=== PATIENT | female | born 1960 | race Caucasian/White ===

== ENCOUNTER 2020-02-11 09:06 | Outpatient (REF) | payer OTHER, SELFPAY ==
[2020-02-11 10:59] LABS: Alanine Aminotransferase 24 U/L (0-31); Albumin Level 4.3 g/dL (3.5-5.0); Alkaline Phosphatase 114 U/L (39-117); Anion Gap 12 (12-20); Aspartate Amino Transferase 24 U/L (5-31); Bilirubin Total 0.9 mg/dL (0.0-1.0); Blood Urea Nitrogen 13 mg/dL (9-16); Calcium 9.1 mg/dL (8.4-10.2); Carbon Dioxide 27 mmol/L (22-29); Chloride 106 mmol/L (96-108); Cholesterol 169 mg/dL; Estimated Glomerular Filt Rate > 60; Glucose Fasting 87 mg/dL (60-99); HDL Cholesterol 51 mg/dL; LDL Cholesterol Calculated 106 mg/dl; Potassium 4.3 mmol/l (3.3-5.1); Sodium 141 mmol/L (135-145); Total Protein 7.5 g/dL (6.5-8.0); Triglycerides 61 mg/dL
== END 2020-02-11 09:07 | disposition home or self-care (01) ==
LOC: HO.LAB 09:06
PROVIDERS: PCP Internal Medicine; Visit Provider Internal Medicine
DX: E78.00 Pure hypercholesterolemia, unspecified (principal); E03.9 Hypothyroidism, unspecified
CPT/HCPCS: 80053; 80061; 84443

== ENCOUNTER 2020-02-28 08:38 | Outpatient (REF) | payer OTHER, SELFPAY | END 2020-02-28 08:39 | disposition home or self-care (01) | LOC: HO.LAB 08:38 | PROVIDERS: Visit Provider Internal Medicine | DX: Z20.828 Contact with and (suspected) exposure to other viral communicable diseases (principal) | CPT/HCPCS: C9803; U0003 ==

== ENCOUNTER 2020-06-11 08:24 | Outpatient (REF) | payer OTHER, SELFPAY ==
[2020-06-11 09:48] LABS: Alanine Aminotransferase 20 U/L (0-31); Albumin Level 4.1 g/dL (3.5-5.0); Alkaline Phosphatase 101 U/L (39-117); Anion Gap 9 (12-20); Aspartate Amino Transferase 20 U/L (5-31); Bilirubin Total 0.5 mg/dL (0.0-1.0); Blood Urea Nitrogen 20 mg/dL (9-16); Calcium 9.1 mg/dL (8.4-10.2); Carbon Dioxide 29 mmol/L (22-29); Chloride 104 mmol/L (96-108); Cholesterol 229 mg/dL; Estimated Glomerular Filt Rate > 60; Glucose Fasting 102 mg/dL (60-99); HDL Cholesterol 44 mg/dL; LDL Cholesterol Calculated 167 mg/dl; Potassium 4.9 mmol/L (3.3-5.1); Sodium 137 mmol/L (135-145); Total Protein 7.2 g/dL (6.5-8.0); Triglycerides 94 mg/dL
[2020-06-11 10:12] LABS: TSH reflex Free T4 2.85 uIU/mL (0.32-4.0)
== END 2020-06-11 08:25 | disposition home or self-care (01) ==
LOC: HO.LAB 08:24
PROVIDERS: PCP Internal Medicine; Visit Provider Internal Medicine
DX: E78.00 Pure hypercholesterolemia, unspecified (principal); E03.9 Hypothyroidism, unspecified
CPT/HCPCS: 36415; 80053; 80061; 84443

== ENCOUNTER 2020-08-10 08:04 | Outpatient (REF) | payer OTHER, SELFPAY ==
--- NOTE | ~2020-08-10 | MM_ITS ---
EXAMINATION: MM SCREENING DIGITAL BREAST TOMOSYNTHESIS, BILATERAL CLINICAL INFORMATION: Screening. Asymptomatic. The lifetime risk of breast cancer based on the Tyrer-Cuzick Model is 9%. COMPARISON: Mammography: 06/06/2019, 06/01/2018, 03/28/2017 TECHNIQUE: Digital breast tomosynthesis is performed in both the craniocaudal and mediolateral oblique views along with computer-aided detection (CAD). Synthesized 2D images are generated from the tomosynthesis. FINDINGS: There are scattered areas of fibroglandular density (ACR BI-RADS breast composition Category b). There are no significant masses, abnormal calcifications, or other abnormalities. There is intramammary node again noted posterior 3:30 o'clock left breast. The skin contours are smooth. No significant changes. MM/MM tomosynthesis screening BI IMPRESSION: No mammographic evidence of malignancy. ASSESSMENT: BI-RADS 2: Benign RECOMMENDATION: Routine annual mammography screening. This patient's information was entered into a reminder system with a target due date for their next mammogram.
== END 2020-08-10 08:05 | disposition home or self-care (01) ==
LOC: HO.MAMMO 08:04
PROVIDERS: PCP Internal Medicine; Visit Provider Internal Medicine
DX: Z12.31 Encounter for screening mammogram for malignant neoplasm of breast (principal)
CPT/HCPCS: 77063; 77067

== ENCOUNTER 2020-10-12 11:45 | Outpatient (REF) | payer OTHER, SELFPAY ==
[2020-10-12 12:40] LABS: Alanine Aminotransferase 27 U/L (0-31); Albumin Level 4.3 g/dL (3.5-5.0); Alkaline Phosphatase 112 U/L (39-117); Anion Gap 11 (12-20); Aspartate Amino Transferase 27 U/L (5-31); Bilirubin Total 0.6 mg/dL (0.0-1.0); Blood Urea Nitrogen 11 mg/dL (9-16); Calcium 9.7 mg/dL (8.4-10.2); Carbon Dioxide 28 mmol/L (22-29); Chloride 107 mmol/L (96-108); Cholesterol 178 mg/dL; Estimated Glomerular Filt Rate 52; Glucose Fasting 98 mg/dL (60-99); HDL Cholesterol 53 mg/dL; LDL Cholesterol Calculated 115 mg/dl; Potassium 4.8 mmol/L (3.3-5.1); Sodium 141 mmol/L (135-145); Total Protein 7.8 g/dL (6.5-8.0); Triglycerides 51 mg/dL
[2020-10-12 13:59] LABS: TSH reflex Free T4 2.23 uIU/mL (0.32-4.0)
== END 2020-10-12 11:46 | disposition home or self-care (01) ==
LOC: HO.LAB 11:45
PROVIDERS: PCP Internal Medicine; Visit Provider Internal Medicine
DX: E03.9 Hypothyroidism, unspecified (principal); E78.00 Pure hypercholesterolemia, unspecified; E78.5 Hyperlipidemia, unspecified
CPT/HCPCS: 36415; 80053; 80061; 84443

== ENCOUNTER 2020-11-28 10:42 | Emergency (ER) | payer OTHER, SELFPAY ==
[2020-11-28 11:22] VITALS: BP 119/61; PULSE 56; RESP 16; TEMP 36.5; O2SAT 100; BMI 21.6
[2020-11-28 12:00] VITALS: BP 139/64; PULSE 56; RESP 18; TEMP 36.8; O2SAT 100
[2020-11-28 12:06] LABS: Glucose Urine UA NEG (NEG); Leukocyte Esterase Urine NEG (NEG); Nitrite Urine NEG (NEG); PH 7.5 (5.0-8.0); Specific Gravity - Urine 1.015 (1.005-1.025); Urine Blood NEG (NEG); Urine Ketones NEG (NEG); Urine Protein NEG (NEG-TRACE)
[2020-11-28 12:09] LABS: Color Urine YELLOW
[2020-11-28 12:10] LABS: Appearance Urine CLEAR
[2020-11-28 14:00] VITALS: BP 125/74; PULSE 70; RESP 16; TEMP 36.5; O2SAT 98
--- NOTE | 2020-11-28 14:29 | ED_ITS ---
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 Related Data Previous Rx's Medication Instructions Recorded atorvastatin 10 mg tablet 10 mg PO DAILY #90 tab 06/16/20 levothyroxine 25 mcg tablet 25 mcg PO QAM #90 tab 06/16/20 sertraline 50 mg tablet 50 mg PO DAILY 90 Days #90 tab 06/16/20 ketorolac 10 mg tablet 10 mg PO Q6H PRN 5 Days #20 tab 11/28/20 Allergies Allergy/AdvReac Type Severity Reaction Status Date / Time No Known Allergies Allergy Verified 11/28/20 11:27 [No Known Allergies*] Review of Systems Review of Systems: Pertinent positives and negatives as stated in HPI 10 point review of systems otherwise negative. PMFSH Past Medical History Source: nursing notes reviewed Medical History Hypothyroidism Mild major depression Obesity Pure hypercholesterolemia Surgical History No pertinent past surgical history Family History Family History Father Diabetes Asthma Hypertension Mother Diabetes Stroke Son Chronic mental illness Schizophrenia Daughter Hypertension Maternal Grandfather Prostate cancer Family/Other Chronic mental illness Other Mental health problem Social History Social History Housing: Apartment Alcohol intake: never Patient Tobacco Use Status: Never used Tobacco Use of substances other than those prescribed or required for medical reasons: No Advance Directives: Yes Advance Directives Information Provided: Yes Advance Directives on File: No service: No Current occupational status: disabled Physical Exam Vital Signs: Vital Signs: Last Vital Signs Temp 97.7 F 11/28/20 14:00 Pulse 70 11/28/20 14:00 Resp 16 11/28/20 14:00 BP 125/74 11/28/20 14:00 Pulse Ox 98 11/28/20 14:00 Body Mass Index 21.6 VITAL SIGNS: Reviewed. GENERAL: Well developed, well nourished, in no acute distress. HEAD: Normocephalic/atraumatic, EYES: PERRLA, EOMI OROPHARYNX: no oral lesions noted, posterior pharynx clear LUNGS: Normal breath sounds. No adventitious sounds or accessory muscle use. SpO2<98> CARDIOVASCULAR: Regular rate and rhythm without noted murmurs, no JVD or lower extremity edema. ABDOMEN: Soft, non-tender, non-distended with bowel sounds BACK: No midline vertebral tenderness there is some pain across superior left gluteus MUSCULOSKELETAL: No tenderness, deformities, or effusions noted on gross inspection. EXTREMITIES: No cyanosis, clubbing or edema. SKIN: Inspection of the skin reveals no rashes NEUROLOGIC: Alert and oriented x 4. Strength and sensation to light touch were grossly intact x 4, no ataxia and steady gait noted. Course Course Course Narrative: 60-year-old female with history of osteoarthritis and clinical presentation negative for infectious, anemic, traumatic etiology for patient's presentation, and review of urinalysis negative for acute findings. Patient received combination analgesics as well as a lidocaine patch and on re- evaluation states that she is feeling much better. She is otherwise discharged in stable condition with strict instructions to follow-up with her primary care provider on Monday. MDM - Back Pain/Injury Lab Data Labs: Lab Results 11/28/20 Range/Units 11:58 Urine Color YELLOW Urine Appearance CLEAR Urine pH 7.5 (5.0-8.0) Ur Specific [place] 1.015 (1.005-1.025) Urine Protein NEG (NEG-TRACE) MG/DL Urine Glucose (UA) NEG (NEG) MG/DL Urine Ketones NEG (NEG) MG/DL Urine Blood NEG (NEG) Urine Nitrite NEG (NEG) Ur Leukocyte Esterase NEG (NEG) Discharge Plan Discharge Clinical Impression: Back pain Patient Disposition: Home, Self-Care Instructions: Back Pain (ED), Lower Back Exercises (ED) Additional Instructions: 1. Reanude todos los medicamentos caseros seg?n lo prescrito. 2. Tylenol 1000 mg, por v?a oral, cada 6 horas seg?n sea necesario para controlar el dolor. No exceda los 4000 mg en 24 horas. 3. Parche de lidoca?na, estos est?n disponibles sin receta y deben aplicarse en el ?cecil de m?xima sensibilidad tomas se indica en el empaque exterior. 4. Sherrell un seguimiento con dinero proveedor de atenci?n primaria el janiya por la ma?michelle para arsenio reevaluaci?n y m?s Manejo ambulatorio. Regrese a la omar de emergencias por un empeoramiento logan de los s?ntomas. Prescriptions: New ketorolac 10 mg tablet 10 mg PO Q6H PRN (Reason: pain) 5 Days Qty: 20 RF: 0 No Action sertraline 50 mg tablet 50 mg PO DAILY 90 Days Qty: 90 RF: 1 levothyroxine 25 mcg tablet 25 mcg PO QAM Qty: 90 RF: 1 atorvastatin 10 mg tablet 10 mg PO DAILY Qty: 90 RF: 2 Referrals: Michelle Cooper MD [Primary Care Provider] - 2 days Print Language: Belarusian
[2020-11-28] MEDS: Acetaminophen 325 MG TABLET 975 MG PO (14:38)
[2020-11-28] MEDS: Ibuprofen 400 MG TABLET PO (14:39)
[2020-11-28] MEDS: Lidocaine 4 % Patch ADH..PATCH 1 PATCH TRANSDERMA (14:39)
== END 2020-11-28 15:33 | disposition home or self-care (01) ==
PROVIDERS: Emergency Provider Student in an Organized Health Care Education/Training Program; PCP Internal Medicine
DX: M54.9 Dorsalgia, unspecified (principal)
CPT/HCPCS: 81003; 99283; 99284

== ENCOUNTER 2021-08-11 09:46 | Outpatient (REF) | payer OTHER, SELFPAY ==
--- NOTE | ~2021-08-11 | MM_ITS ---
EXAMINATION: MM SCREENING DIGITAL BREAST TOMOSYNTHESIS, BILATERAL CLINICAL INFORMATION: Screening. Asymptomatic. The lifetime risk of breast cancer based on the Tyrer-Cuzick Model is 7%. COMPARISON: Mammography: 08/10/2020, 06/06/2019, 06/01/2018 TECHNIQUE: Digital breast tomosynthesis is performed in both the craniocaudal and mediolateral oblique views along with computer-aided detection (CAD). Synthesized 2D images are generated from the tomosynthesis. FINDINGS: There are scattered areas of fibroglandular density (ACR BI-RADS breast composition Category b). There are no significant masses, abnormal calcifications, or other abnormalities. The axilla are unremarkable. Incidental intramammary node again seen posterior 3:30 o'clock left breast. MM/MM tomosynthesis screening BI IMPRESSION: No mammographic evidence of malignancy. ASSESSMENT: BI-RADS 2: Benign RECOMMENDATION: Routine annual mammography screening. This patient's information was entered into a reminder system with a target due date for their next mammogram.
== END 2021-08-11 09:47 | disposition home or self-care (01) ==
LOC: HO.MAMMO 09:46
PROVIDERS: Visit Provider Internal Medicine
DX: Z12.31 Encounter for screening mammogram for malignant neoplasm of breast (principal)
CPT/HCPCS: 77063; 77067

== ENCOUNTER 2021-08-17 11:42 | Outpatient (REF) | payer OTHER, SELFPAY ==
[2021-08-17 13:30] LABS: Alanine Aminotransferase 26 U/L (0-31); Alkaline Phosphatase 113 U/L (39-117); Anion Gap 11 (12-20); Aspartate Amino Transferase 25 U/L (5-31); Bilirubin Total 0.5 mg/dL (0.0-1.0); Blood Urea Nitrogen 13 mg/dL (9-16); Calcium 9.6 mg/dL (8.4-10.2); Carbon Dioxide 28 mmol/L (22-29); Chloride 107 mmol/L (96-108); Cholesterol 169 mg/dL; Estimated Glomerular Filt Rate > 60; Glucose Fasting 90 mg/dL (60-99); HDL Cholesterol 51 mg/dL; LDL Cholesterol Calculated 108 mg/dl; Potassium 4.5 mmol/L (3.3-5.1); Sodium 141 mmol/L (135-145); Total Protein 7.6 g/dL (6.5-8.0); Triglycerides 54 mg/dL
[2021-08-17 13:57] LABS: Thyroid Stimulating Hormone 1.88 uIU/mL (0.32-4.0)
[2021-08-21 12:22] LABS: Vitamin D 25-OH, D2 <4 ng/mL; Vitamin D 25-OH, D3 25 ng/mL; Vitamin D 25-OH, Total 25 ng/mL (30-100)
== END 2021-08-17 11:43 | disposition home or self-care (01) ==
LOC: HO.LAB 11:42
PROVIDERS: PCP Internal Medicine; Visit Provider Internal Medicine
DX: E78.5 Hyperlipidemia, unspecified (principal); E78.00 Pure hypercholesterolemia, unspecified; E03.9 Hypothyroidism, unspecified; E55.9 Vitamin D deficiency, unspecified
CPT/HCPCS: 36415; 80053; 80061; 82306; 84443

== ENCOUNTER → 2021-09-28 12:17 | Outpatient (BNVA) | payer OTHER, SELFPAY | PROVIDERS: PCP Internal Medicine; Visit Provider Physician Assistant | DX: K64.9 Unspecified hemorrhoids (principal) | CPT/HCPCS: 99212 ==

== ENCOUNTER → 2021-11-22 14:08 | Outpatient (BNVA) | payer OTHER, SELFPAY | PROVIDERS: PCP Internal Medicine; Referring Provider Internal Medicine; Visit Provider Physician Assistant | DX: K64.9 Unspecified hemorrhoids (principal); Z79.899 Other long term (current) drug therapy | CPT/HCPCS: 99212 ==

== ENCOUNTER 2021-12-28 08:44 | Outpatient (REF) | payer OTHER, SELFPAY ==
[2021-12-28 09:52] LABS: Alanine Aminotransferase 24 U/L (0-31); Albumin Level 4.2 g/dL (3.5-5.0); Alkaline Phosphatase 110 U/L (39-117); Anion Gap 13 (12-20); Aspartate Amino Transferase 23 U/L (5-31); Bilirubin Total 0.5 mg/dL (0.0-1.0); Blood Urea Nitrogen 18 mg/dL (9-16); Calcium 9.6 mg/dL (8.4-10.2); Carbon Dioxide 27 mmol/L (22-29); Chloride 106 mmol/L (96-108); Cholesterol 163 mg/dL; Estimated Glomerular Filt Rate > 60; Glucose Fasting 103 mg/dL (60-99); HDL Cholesterol 46 mg/dL; Potassium 4.9 mmol/L (3.3-5.1); Sodium 141 mmol/L (135-145); Total Protein 7.7 g/dL (6.5-8.0)
[2021-12-28 09:58] LABS: LDL Cholesterol Calculated 102 mg/dl; Triglycerides 76 mg/dL
[2021-12-28 10:01] LABS: Thyroid Stimulating Hormone 2.74 uIU/mL (0.32-4.0)
== END 2021-12-28 08:45 | disposition home or self-care (01) ==
LOC: HO.LAB 08:44
PROVIDERS: PCP Internal Medicine; Visit Provider Internal Medicine
DX: E78.00 Pure hypercholesterolemia, unspecified (principal); E78.5 Hyperlipidemia, unspecified; E03.9 Hypothyroidism, unspecified
CPT/HCPCS: 36415; 80053; 80061; 84443

== ENCOUNTER 2022-05-05 10:57 | Outpatient (REF) | payer OTHER, SELFPAY ==
[2022-05-05 12:58] LABS: Alanine Aminotransferase 19 U/L (0-31); Albumin Level 4.2 g/dL (3.5-5.0); Alkaline Phosphatase 113 U/L (39-117); Anion Gap 13 (12-20); Aspartate Amino Transferase 22 U/L (5-31); Bilirubin Total 0.8 mg/dL (0.0-1.0); Blood Urea Nitrogen 15 mg/dL (9-16); Calcium 9.8 mg/dL (8.4-10.2); Carbon Dioxide 28 mmol/L (22-29); Chloride 108 mmol/L (96-108); Cholesterol 179 mg/dL; Estimated Glomerular Filt Rate > 60; Glucose Fasting 88 mg/dL (60-99); HDL Cholesterol 49 mg/dL; LDL Cholesterol Calculated 118 mg/dl; Potassium 5.6 mmol/L (3.3-5.1); Sodium 143 mmol/L (135-145); Total Protein 7.5 g/dL (6.5-8.0); Triglycerides 62 mg/dL
[2022-05-05 13:13] LABS: Thyroid Stimulating Hormone 2.27 uIU/mL (0.32-4.0); Vitamin D 25-OH Total 27.6 ng/mL (>30)
== END 2022-05-05 10:58 | disposition home or self-care (01) ==
LOC: HO.LAB 10:57
PROVIDERS: PCP Internal Medicine; Visit Provider Internal Medicine
DX: E78.5 Hyperlipidemia, unspecified (principal); E78.00 Pure hypercholesterolemia, unspecified; E55.9 Vitamin D deficiency, unspecified; E03.9 Hypothyroidism, unspecified
CPT/HCPCS: 36415; 80053; 80061; 82306; 84443

== ENCOUNTER → 2022-05-26 12:47 | Outpatient (BNVA) | payer OTHER, SELFPAY | PROVIDERS: PCP Internal Medicine; Visit Provider Physician Assistant | DX: K62.5 Hemorrhage of anus and rectum (principal) | CPT/HCPCS: 99212 ==

== ENCOUNTER 2022-06-15 10:50 | Outpatient (REF) | payer OTHER, SELFPAY ==
[2022-06-15 10:58] LABS: MANUAL DIFF FLAG NO
[2022-06-15 12:02] LABS: Basophils Absolute Auto 0.1 X10*3/uL (0.0-0.2); Basophils Percent Auto 1.7 % (0-2); Eosinophils Absolute Auto 0.1 X10*3/uL (0.0-0.4); Eosinophils Percent Auto 3.1 % (0-4); Hemoglobin 15.1 g/dl (12.0-16.0); Imm Gran Abs Auto 0.01 X10*3/uL (0.00-0.03); Imm Gran Pct Auto 0.2 % (0.0-0.4); Lymphocytes Absolute Auto 1.8 X10*3/uL (1.2-4.9); Lymphocytes Percent Auto 42.3 % (20-40); Mean Corpuscular HGB Conc 32.8 g/dl (31.0-35.0); Mean Corpuscular Hemoglobin 30.4 pg (27.0-33.0); Mean Corpuscular Volume 92.6 fL (80.0-98.0); Monocytes Absolute Auto 0.3 X10*3/uL (0.1-1.2); Monocytes Percent Auto 8.2 % (2-11); Neutrophils Absolute Auto 1.8 x10*3/uL (2.0-8.3); Neutrophils Percent Auto 44.5 % (45-73); Platelet Count 276 X10*3/uL (160-400); Red Blood Count 4.97 X10*6/uL (4.20-5.50); Red Cell Distribution Width 14.4 % (11.0-16.0); White Blood Count 4.1 X10*3/uL (4.8-10.8)
[2022-06-15 12:15] LABS: Alanine Aminotransferase 22 U/L (0-31); Albumin Level 4.3 g/dL (3.5-5.0); Alkaline Phosphatase 104 U/L (39-117); Anion Gap 12 (12-20); Aspartate Amino Transferase 24 U/L (5-31); Bilirubin Total 0.5 mg/dL (0.0-1.0); Blood Urea Nitrogen 14 mg/dL (9-16); Calcium 9.8 mg/dL (8.4-10.2); Carbon Dioxide 28 mmol/L (22-29); Chloride 108 mmol/L (96-108); Cholesterol 178 mg/dL; Estimated Glomerular Filt Rate > 60; Glucose Random 94 mg/dL (60-115); HDL Cholesterol 51 mg/dL; LDL Cholesterol Calculated 114 mg/dl; Potassium 5.1 mmol/L (3.3-5.1); Sodium 143 mmol/L (135-145); Total Protein 7.6 g/dL (6.5-8.0); Triglycerides 66 mg/dL
== END 2022-06-15 10:51 | disposition home or self-care (01) ==
LOC: HO.LAB 10:50
PROVIDERS: Physician Assistant; PCP Internal Medicine; Visit Provider Internal Medicine
DX: K62.5 Hemorrhage of anus and rectum (principal); E78.00 Pure hypercholesterolemia, unspecified; E78.5 Hyperlipidemia, unspecified; E87.5 Hyperkalemia
CPT/HCPCS: 36415; 80053; 80061; 85025

== ENCOUNTER 2022-07-13 08:28 | Outpatient (REF) | payer OTHER, SELFPAY ==
[2022-07-13 15:53] LABS: CT PCR NOT DETECTED (Not Detect.); NG PCR NOT DETECTED (Not Detect.)
[2022-07-16 03:09] LABS: HPV mRNA E6/E7 rflx Not Detected (Not Detected)
== END 2022-07-13 08:29 | disposition home or self-care (01) ==
LOC: HO.LNP 08:28
PROVIDERS: PCP Internal Medicine; Visit Provider Advanced Practice Midwife
DX: Z01.419 Encounter for gynecological examination (general) (routine) without abnormal findings (principal); N84.1 Polyp of cervix uteri; N95.0 Postmenopausal bleeding; Z20.2 Contact with and (suspected) exposure to infections with a predominantly sexual mode of transmission
CPT/HCPCS: 0353U; 87624; 88142

== ENCOUNTER 2022-07-29 08:50 | Outpatient (REF) | payer OTHER, SELFPAY ==
--- NOTE | ~2022-07-29 | US_ITS ---
EXAMINATION: US PELVIS CLINICAL INFORMATION: 62-year-old with postmenopausal bleeding COMPARISON: None available. TECHNIQUE: Ultrasound of the pelvis is performed using both transabdominal and transvaginal transducers along with Doppler. Transvaginal imaging is performed due to inadequate visualization transabdominally. FINDINGS: Uterus: The uterus is anteverted and measures 7.0 x 3.8 x 5.5 cm. The double wall endometrial thickness is 7 mm with fluid and possible cyst seen in the endometrium cavity. The uterus is smooth in contour and has normal myometrial echogenicity. No visible fibroid. Adnexa: Both ovaries are visualized. There is normal color flow to the adnexa. There is no ovarian torsion. There is no pelvic ascites or fluid collection. Right ovary measures 2.1 x 1.2 x 1.3 cm. Left ovary measures 2.0 x 1.1 x 1.3 cm. US/US pelvic and transvaginal IMPRESSION: Thickened endometrium with fluid and possible cyst seen in the endometrium. Recommend further evaluation with direct visualization and tissue sampling.
== END 2022-07-29 08:51 | disposition home or self-care (01) ==
LOC: HO.US 08:50
PROVIDERS: PCP Internal Medicine; Visit Provider Advanced Practice Midwife
DX: N84.1 Polyp of cervix uteri (principal); N95.0 Postmenopausal bleeding
CPT/HCPCS: 76830; 76856

== ENCOUNTER → 2022-08-08 14:47 | Outpatient (BNVA) | payer OTHER, SELFPAY | PROVIDERS: PCP Internal Medicine; Visit Provider Advanced Practice Midwife ==

== ENCOUNTER 2022-08-17 09:27 | Outpatient (REF) | payer OTHER, SELFPAY ==
--- NOTE | ~2022-08-17 | MM_ITS ---
EXAMINATION: MM SCREENING DIGITAL BREAST TOMOSYNTHESIS, BILATERAL CLINICAL INFORMATION: Screening. Asymptomatic. The lifetime risk of breast cancer based on the Tyrer-Cuzick Model is 8.8%. COMPARISON: Mammography: August 11, 2021 and studies dating back to January 01, 2016 TECHNIQUE: Digital breast tomosynthesis is performed in both the craniocaudal and mediolateral oblique views along with computer-aided detection (CAD). Synthesized 2D images are generated from the tomosynthesis. FINDINGS: There are scattered areas of fibroglandular density (ACR BI-RADS breast composition Category b). There are no significant masses, abnormal calcifications, or other abnormalities. MM/MM tomosynthesis screening BI IMPRESSION: No significant changes from prior exam. ASSESSMENT: BI-RADS 1: Negative RECOMMENDATION: Routine annual mammography screening. This patient's information was entered into a reminder system with a target due date for their next mammogram.
== END 2022-08-17 09:28 | disposition home or self-care (01) ==
LOC: HO.MAMMO 09:27
PROVIDERS: PCP Internal Medicine; Visit Provider Internal Medicine
DX: Z12.31 Encounter for screening mammogram for malignant neoplasm of breast (principal)
CPT/HCPCS: 77063; 77067

== ENCOUNTER 2022-09-01 09:43 | Outpatient (REF) | payer OTHER, SELFPAY ==
[2022-09-01 10:30] LABS: Alanine Aminotransferase 24 U/L (0-31); Albumin Level 4.2 g/dL (3.5-5.0); Alkaline Phosphatase 104 U/L (39-117); Anion Gap 11 (12-20); Aspartate Amino Transferase 23 U/L (5-31); Bilirubin Total 0.8 mg/dL (0.0-1.0); Blood Urea Nitrogen 12 mg/dL (9-16); Calcium 9.9 mg/dL (8.4-10.2); Carbon Dioxide 28 mmol/L (22-29); Chloride 109 mmol/L (96-108); Estimated Glomerular Filt Rate > 60; Glucose Fasting 98 mg/dL (60-99); Potassium 4.8 mmol/L (3.3-5.1); Sodium 143 mmol/L (135-145); Total Protein 7.5 g/dL (6.5-8.0)
== END 2022-09-01 09:44 | disposition home or self-care (01) ==
LOC: HO.LAB 09:43
PROVIDERS: PCP Internal Medicine; Visit Provider Internal Medicine
DX: N84.1 Polyp of cervix uteri (principal); E78.00 Pure hypercholesterolemia, unspecified; N95.0 Postmenopausal bleeding
CPT/HCPCS: 36415; 57500; 80053; 99212

== ENCOUNTER 2022-09-01 11:02 | Outpatient (REF) | payer OTHER, SELFPAY | END 2022-09-01 11:03 | disposition home or self-care (01) | LOC: HO.LNP 11:02 | PROVIDERS: Visit Provider Obstetrics & Gynecology | DX: N84.1 Polyp of cervix uteri (principal) | CPT/HCPCS: 88305 ==

== ENCOUNTER 2022-09-23 06:14 | Day surgery (SDC) | payer OTHER, SELFPAY ==
[2022-09-20 11:31] VITALS: BMI 31.4
--- NOTE | 2022-09-22 08:38 | HO.ANESPROP2 ---
Documented by User: Pushpa Oliveros NP 09/22/22 08:39 HPI - Anesthesia Eval Consult details Narrative: 62yo F for D&C Hysteroscopy, poss myomectomy/polypectomy PMFSH Active Problems Active Problems: All Active Problems (Updated 09/06/22 @ 11:06 by Michelle Wells MD) Chronic idiopathic constipation (Acute) Endocervical polyp (Acute) Postmenopausal bleeding (Acute) Physical exam (Acute) Screening for cervical cancer (Acute) Hyperkalemia (Acute) Hemorrhoids (Acute) Encounter for screening colonoscopy (Acute) Rectal bleeding (Acute) Mild major depression (Acute) Obesity (Acute) Pure hypercholesterolemia (Acute) Hypothyroidism (Acute) Past Medical History Medical History Hypothyroidism Mild major depression Obesity Postmenopausal bleeding Pure hypercholesterolemia Rectal bleeding Family History Family History Father Diabetes Asthma Hypertension Mother Diabetes Stroke Son Chronic mental illness Schizophrenia Daughter Hypertension Maternal Grandfather Prostate cancer Family/Other Chronic mental illness Family/Other History of breast cancer Other Mental health problem Surgical History Surgical History Hx of colonoscopy No pertinent past surgical history Social History Social History Household Members Other:: lives alone, has family nearby Housing: Apartment Alcohol intake: never Patient Tobacco Use Status: Never used Tobacco e-Cigarette/Vaping Use: Never Used Second Hand Smoke Exposure: No Are you DNR?: No Advance Directives: No Advance Directives Information Provided: Yes service: No Current occupational status: disabled Cognitive needs: No Hearing needs: No Vision needs: Yes Meds Allergies Allergy/AdvReac Type Severity Reaction Status Date / Time No Known Allergies Allergy Verified 09/06/22 10:48 [No Known Allergies*] Exam Exam Date and Time: September 22, 2022 0838 Height,Weight and Vital Signs: Height 5 ft 5 in Weight 85.729 kg Pertinent Lab Results Pertinent Lab Results: Laboratory Tests 06/15/22 09/01/22 10:57 09:56 WBC 4.1 L Hgb 15.1 Hct 46.0 Plt Count 276 Sodium 143 Potassium 4.8 Chloride 109 H Carbon Dioxide 28 BUN 12 Creatinine 0.88 Assessment and Plan Assessment Anesthesia Assessment: Chart Reviewed Documented by User: Juan Recinos MD 09/23/22 08:19 PMFSH Past Medical History Medical History Hypothyroidism Mild major depression Obesity Postmenopausal bleeding Pure hypercholesterolemia Rectal bleeding Family History Family History Father Diabetes Asthma Hypertension Mother Diabetes Stroke Son Chronic mental illness Schizophrenia Daughter Hypertension Maternal Grandfather Prostate cancer Family/Other Chronic mental illness Family/Other History of breast cancer Other Mental health problem Family history of problems with anesthesia: No Surgical History Surgical History Hx of colonoscopy No pertinent past surgical history History of Problems with Anesthesia: No Social History Social History Household Members Other:: lives alone, has family nearby Housing: Apartment Alcohol intake: never Patient Tobacco Use Status: Never used Tobacco e-Cigarette/Vaping Use: Never Used Second Hand Smoke Exposure: No Are you DNR?: No Advance Directives: No Advance Directives Information Provided: Yes service: No Current occupational status: disabled Cognitive needs: No Hearing needs: No Vision needs: Yes Meds Allergies Allergy/AdvReac Type Severity Reaction Status Date / Time No Known Allergies Allergy Verified 09/06/22 10:48 [No Known Allergies*] Exam Airway Mallampati Class: I TM Dist: >3cm Neck ROM: Full Loose/Missing/Broken Teeth: Yes Heart: ok Lungs: ok Assessment and Plan Assessment Anesthesia Assessment: Anesthesia Plan Discussed Final Anesthetic Review Family History of Problems with Anesthesia: No History of Problems with Anesthesia: No NPO: Yes ASA Class: II Final Preanesthetic Review: No Changes in Pt Med Stat, Meds/Allgs Chart Reviewed, Consent Obtained/Reviewed and Anes Risks/Benef Reviewed Patient Risk: Intermediate Procedure Risk: Low Anesthetic Plan Anesthetic Plan: GA and Agree w/ Assess. and Plan Disposition: Standard PACU
[2022-09-23 06:36] VITALS: BP 136/61; PULSE 62; RESP 18; TEMP 36.3; O2SAT 98
[2022-09-23] MEDS: Lactated Ringers 1,000 ML 100 ML IVCONT (07:02)
--- NOTE | 2022-09-23 07:31 | MHC.SHP ---
Pre-Procedural Eval Section A Date of Service: 09/23/22 The patient is an INPATIENT: No Changes since office visit: No Cold of Flu in the past 2 weeks, No New Medical Problems, No Changes in Medication and No Patient answered all questions The History & Physical has been completed within 30 days and I have reviewed it.: Yes Section B Chief Complaint: Postmenopausal bleeding Allergies: Allergies Allergy/AdvReac Type Severity Reaction Status Date / Time No Known Allergies Allergy Verified 09/06/22 10:48 [No Known Allergies*] Plan Diagnosis/Plan: Unchanged I have reviewed the history and physical and performed a pertinent physical examination on my patient. No changes have occurred unless specified. Time Spent With Patient Time: Total time managing care of this patient today ____ minutes.
--- NOTE | 2022-09-23 08:54 | PM.OP ---
Brief Operative Note Date of Service: 09/23/22 Pre-op diagnosis: Postmenopausal bleeding, abnormal endometrium by ultrasound Post-op diagnosis: same (Normal endometrial cavity with no evidence of pathology) Procedure: Hysteroscopy D& Surgeon: Ren Ha MD Anesthesia: GLMA Was an Contract Engineer used for this Procedure?: No Estimated blood loss (mL): 0 Pathology: other (Endometrial Scrapping. ) Condition: stable Disposition: PACU
--- NOTE | 2022-09-23 08:55 | P.OP_ITS ---
Operative Note Operative Note Date of Service: 09/23/22 Narrative: Preop Diagnosis: Post Menopausal bleeding, abnormal endometrium by ultrasound Operation: Diagnostic Hysteroscopy, Dilataion & Curettage Post Op Diagnosis: Normal endometrial cavity QBL: Minimal Anesthesia: GLMA Surgeon: Ren Ha MD Dinkey Press Operator: None Complication: None Pathology: Endometrial Scrapings Procedure: The patient was put in the dorsal lithotomy position, scrubbed, and draped in the usual manner. A sterile speculum was inserted in the patient's vagina. The anterior lip of the cervix was grasped with a single tooth tenaculum. The cervix was dilated up to 5 mm, then the scope was inserted in the patient's uterus. Inspection revealed Normal endometrial cavity. The Myosure Reach device was used; the scope was removed from the endometrial cavity , sharp curettings was carried on with minimal to moderate amount of tissues retrieved. At the end of the procedure, all instruments were taken out of the patient uterine and vaginal cavity. The single tooth tenaculum was removed and homeostasis was assured using pressure,. The patient tolerated the procedure well and was transferred to the PACU in a stable condition.
[2022-09-23 09:05] VITALS: BP 96/53; PULSE 63; RESP 12; TEMP 36.2; O2SAT 95
[2022-09-23 09:10] VITALS: BP 106/55; PULSE 60; RESP 14; O2SAT 97
[2022-09-23 09:15] VITALS: BP 113/61; PULSE 64; RESP 16; O2SAT 99
[2022-09-23 09:20] VITALS: BP 124/59; PULSE 63; RESP 16; O2SAT 99
== END 2022-09-23 10:03 | disposition home or self-care (01) ==
PROVIDERS: PCP Internal Medicine; Visit Provider Obstetrics & Gynecology
PROC: 0UDB8ZZ Extraction of Endometrium, Via Natural or Artificial Opening Endoscopic (ICD-10-PCS; CPT 58558; principal; 2022-09-23 08:30)
DX: N95.0 Postmenopausal bleeding (principal); E03.9 Hypothyroidism, unspecified; E78.00 Pure hypercholesterolemia, unspecified; F33.0 Major depressive disorder, recurrent, mild; E66.9 Obesity, unspecified; Z68.31 Body mass index [BMI] 31.0-31.9, adult
CPT/HCPCS: 58558; 88305; J1885; J2405; J3010

== ENCOUNTER 2022-10-06 07:44 | Outpatient (AMB) | payer OTHER, SELFPAY ==
--- NOTE | 2022-10-06 07:53 | MHC.OFFVIS ---
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 The pathology showed the following: Endometrium, curettage: Benign inactive endometrium and fragments suggestive of benign polyps; no atypia or or carcinoma. ON LICENSE OF [facility] Medical History (Updated 10/06/22 @ 08:13 by Ren Ha MD) Hypothyroidism Mild major depression Obesity Postmenopausal bleeding Pure hypercholesterolemia Rectal bleeding Surgical History Hx of colonoscopy No pertinent past surgical history Family History Father Diabetes Asthma Hypertension Mother Diabetes Stroke Son Chronic mental illness Schizophrenia Daughter Hypertension Maternal Grandfather Prostate cancer Family/Other Chronic mental illness Family/Other History of breast cancer Other Mental health problem Social History Household Members Other:: lives alone, has family nearby Housing: Apartment Alcohol intake: never Patient Tobacco Use Status: Never used Tobacco e-Cigarette/Vaping Use: Never Used Second Hand Smoke Exposure: No service: No Current occupational status: disabled Cognitive needs: No Hearing needs: No Vision needs: Yes Review of Systems Const All systems reviewed & are unremarkable except as noted in HPI and below Reports as per HPI and Reports no additional complaints GI Reports no additional complaints Reports no additional complaints Physical Exam Vital Signs: BMI result Body Mass Index 31.4 Assessment & Plan Assessment & Plan (1) Postmenopausal bleeding: Code(s): N95.0 - Postmenopausal bleeding Plan: Discussed with the patient the pathology results of the endometrial scraping. Discussed with the patient the sensitivity, specificity, positive and negative predictive value, of endometrial biopsy in detecting endometrial pathology including but not limited to endometrial hyperplasia, cancer and other pathology; instructed the patient to call in case is vaginal bleeding bleeding recurs, the next step will be to proceed with further endometrial sampling evaluation to rule out endometrial pathology. All questions answered and the patient verbalized understanding and agreed with the plan. Coding Level of Care Code Est Pt Level 3 (55436) Diagnoses Postmenopausal bleeding N95.0
[2022-10-06 07:54] VITALS: BMI 31.4
== END 2022-10-06 08:16 | disposition home or self-care (01) ==
LOC: HO.HWS 07:44
PROVIDERS: PCP Internal Medicine; Visit Provider Obstetrics & Gynecology
DX: N95.0 Postmenopausal bleeding (principal)
CPT/HCPCS: 99213

== ENCOUNTER → 2022-10-06 07:44 | Outpatient (BNVA) | payer OTHER, SELFPAY | PROVIDERS: PCP Internal Medicine; Visit Provider Obstetrics & Gynecology | DX: N95.0 Postmenopausal bleeding (principal); Z98.890 Other specified postprocedural states | CPT/HCPCS: 99212 ==

== ENCOUNTER 2023-02-01 11:19 | Outpatient (REF) | payer OTHER, SELFPAY | END 2023-02-01 11:20 | disposition home or self-care (01) | LOC: HO.LAB 11:19 | PROVIDERS: PCP Internal Medicine; Visit Provider Internal Medicine | DX: E03.9 Hypothyroidism, unspecified (principal) | CPT/HCPCS: 36415; 84443 ==

== ENCOUNTER 2023-02-07 07:15 | Outpatient (AMB) | payer OTHER, SELFPAY ==
[2023-02-07 07:37] VITALS: BP 110/70; PULSE 75; O2SAT 98; BMI 29.6
--- NOTE | 2023-02-07 07:37 | A.OFFPC_ITS ---
Vital Signs 02/07/23 07:37 Height 5 ft 5 in Weight 178 lb BMI 29.6 BP 110/70 Blood Pressure Location Lt brachial Position Sitting Pulse 75 Pulse Source Pulse Oximeter Pulse Oximetry (%) 98 Oxygen Delivery Method Room Air Intake Visit Reasons: thyroid, lipids Intake Note: Patient here for a follow up on thyroid, lipids Traffic Sign Supervisor Required: No Accompanied by: Self / Same As Patient Allergies No Known Allergies [No Known Allergies*] Allergy (Verified 02/07/23 07:45) Medication List - Last Reconciled 02/07/23 by Michelle Wells MD atorvastatin 10 mg PO DAILY docusate sodium (Colace) 200 mg (2 x 100 mg) PO BEDTIME levothyroxine 25 mcg PO QAM sertraline 50 mg PO DAILY 90 days Tobacco use date assessed: 05/10/22 Dental Screening Dental Screen Date: 02/07/23 Did you have a dental visit in the last 12 months?: Yes Did you have a dental problem in the last 6 months where you did not have access to dental care?: No Was dental information given to patient?: Patient has dentist HPI HPI Comments History of Present Illness Details This is a 62-year-old female with hypothyroidism, pure hypercholesterolemia, chronic idiopathic constipation and mild major depression that comes today for follow-up on her conditions. TSH normal. Last cholesterol was well control and this will be repeated in 3 months. She is compliant with all her medications. Constipation stable with docusate as needed. Depression also well controlled with SSRIs and this is follow by Psychiatry. Denies any chest pain or shortness of breath. [facility] Medical History Postmenopausal bleeding Rectal bleeding Mild major depression Obesity Pure hypercholesterolemia Hypothyroidism Surgical History Hx of colonoscopy No pertinent past surgical history Family History Father Diabetes Asthma Hypertension Mother Diabetes Stroke Son Chronic mental illness Schizophrenia Daughter Hypertension Maternal Grandfather Prostate cancer Family/Other Chronic mental illness Family/Other History of breast cancer Other Mental health problem Social History Household Members Other:: lives alone, has family nearby Housing: Apartment Alcohol intake: never Patient Tobacco Use Status: Never used Tobacco e-Cigarette/Vaping Use: Never Used Second Hand Smoke Exposure: No service: No Current occupational status: disabled Cognitive needs: No Hearing needs: No Vision needs: Yes Questionnaire Thrive Questionnaire Date Thrive assessed: 05/10/22 ESTRELLA-7 AMB Questionnaire ESTRELLA-7 Date ESTRELLA - 7 assessed: 05/10/22 Source: Developed by Drs. Jose Miller, Shadia Marin, Izaiah Adams and colleagues, with an educational demond from [employer]. Review of Systems Const All systems reviewed & are unremarkable except as noted in HPI and below Eyes Reports no additional complaints, Denies change in vision and Denies other visual disturbances Card Denies chest pain at rest, Denies chest pain with activity, Denies edema, Denies irregular heart rhythm, Denies claudication, Denies dyspnea, Denies dyspnea on exertion, Denies orthopnea, Denies paroxysmal nocturnal dyspnea and Denies slow heart rate Resp Denies cough, Denies dyspnea and Denies dyspnea on exertion GI Denies abdominal pain, Denies change in bowel habits, Denies excessive flatus, Denies nausea and Denies vomiting Denies urinary incontinence, Denies urinary hesitancy and Denies urinary urgency Musc Denies abnormal gait, Denies atrophy, Denies deformity and Denies limited range of motion Skin/Breast Denies bleeding lesions, Denies changing lesions and Denies rash Neuro Denies abnormal gait and Denies lack of coordination Physical exam (Primary Care) Vital Signs: Last Vital Signs Pulse 75 02/07/23 07:37 BP 110/70 02/07/23 07:37 Pulse Ox 98 02/07/23 07:37 Oxygen Delivery Method Room Air 02/07/23 07:37 BMI result Body Mass Index 29.6 Tobacco/Smoking Status: Tobacco use Status Tobacco use date assessed 05/10/22 02/07/23 07:43 Patient Tobacco Use Status Never used Tobacco 02/07/23 07:43 e-Cigarette/Vaping Use Never Used 02/07/23 07:43 Thrive Assessment: Date of Thrive Assessment Date Thrive assessed 05/10/22 02/07/23 07:43 Eyes General: appearance normal, both eyes and all related structures Eyelids: Yes eyelids normal Conjunctivae: conjunctivae normal Neck Neck: Yes normal visual inspection and Yes supple Resp Effort & Inspection: normal respiratory effort Auscultation: clear to auscultation bilaterally Cardio Jugular venous distension: no JVD Rate: regular rate Rhythm: regular rhythm Heart sounds: S1 normal heart sound present and S2 normal heart sound present Extrem General: Yes full ROM Office Procedures Flu Questionnaire Does the patient have a severe egg allergy?: No Does the patient have severe life threatening allergies?: No Does the patient have a fever or illness today?: No Has the patient ever had Guillain-[place] Syndrome?: No Has the patient ever had any past reaction to a flu shot?: No Immunizations flu vacc [id number] 6mos up(PF) 60 mcg(15 mcgx4)/0.5 mL IM syringe Performing Provider: Michelle Wells MD [facility] Administered by: ALEJANDRINA Marley on 02/07/23 07:56 Dose Route Admin Location Dispensed Lot Number Expiration Date [employer] Worker 0.5 mL IM Left Deltoid 0.5 mL [id number] 09/24/23 43026-941-70 [employer]renn VIS Given Date VIS Provided VIS Publication Date 02/07/23 Single Vaccine 20 Eligibility Eligibility Date Funding Source Not [facility] Eligible 02/07/23 Private Assessment and Plan Assessment & Plan (1) Mild major depression: Code(s): F32.0 - Major depressive disorder, single episode, mild Plan: Continue SSRIs (2) Pure hypercholesterolemia: Code(s): E78.00 - Pure hypercholesterolemia, unspecified Plan: Continue statins. (3) Hypothyroidism: Code(s): E03.9 - Hypothyroidism, unspecified Qualifiers: Hypothyroidism type: unspecified Qualified Code(s): E03.9 - Hypothyroidism, unspecified Plan: Continue levothyroxine. (4) Chronic idiopathic constipation: Code(s): K59.04 - Chronic idiopathic constipation Plan: Continue docusate as needed. Follow a high-fiber diet. Orders: Orders Lipid Panel 3 Months E78.5 - Hyperlipidemia, unspecified Vitamin D 25-OH Total 3 Months E55.9 - Vitamin D deficiency, unspecified Influenza [id number] Immunization Today Z23 - Encounter for immunization Comprehensive [place]. Panel Fast 3 Months E78.00 - Pure hypercholesterolemia, unspecified Thyroid Stimulating Hormone 3 Months E03.9 - Hypothyroidism, unspecified Medications: New flu vacc [id number] 6mos up(PF) 0.5 mL IM ONCE 0.5 mL 0RF Z23 - Encounter for immunization Coding Level of Care Code Est Pt Level 4 (32233) Diagnoses Mild major depression F32.0 Pure hypercholesterolemia E78.00 Hypothyroidism, unspecified type E03.9 Hypothyroidism type: unspecified Chronic idiopathic constipation K59.04 Time Spent (min) 23
== END 2023-02-07 07:56 | disposition home or self-care (01) ==
PROVIDERS: PCP Internal Medicine; Visit Provider Internal Medicine
DX: F32.0 Major depressive disorder, single episode, mild (principal); E78.00 Pure hypercholesterolemia, unspecified; E03.9 Hypothyroidism, unspecified; K59.04 Chronic idiopathic constipation; Z23 Encounter for immunization
CPT/HCPCS: 90471; 90686; 99214

== ENCOUNTER 2023-05-04 09:28 | Outpatient (REF) | payer OTHER, SELFPAY ==
[2023-05-04 10:46] LABS: Alanine Aminotransferase 13 U/L (0-31); Albumin Level 3.9 g/dL (3.5-5.0); Alkaline Phosphatase 116 U/L (39-117); Anion Gap 12 (12-20); Aspartate Amino Transferase 19 U/L (5-31); Bilirubin Total 0.6 mg/dL (0.0-1.0); Blood Urea Nitrogen 12 mg/dL (9-16); Calcium 9.4 mg/dL (8.4-10.2); Carbon Dioxide 27 mmol/L (22-29); Chloride 108 mmol/L (96-108); Cholesterol 137 mg/dL (<200); Estimated Glomerular Filt Rate > 60; Glucose Fasting 98 mg/dL (60-99); HDL Cholesterol 41 mg/dL (>40); LDL Cholesterol Calculated 79 mg/dL (<100); Potassium 4.7 mmol/L (3.3-5.1); Sodium 142 mmol/L (135-145); Total Protein 7.2 g/dL (6.5-8.0); Triglycerides 88 mg/dL (<150)
[2023-05-04 11:02] LABS: Thyroid Stimulating Hormone 2.07 uIU/mL (0.32-4.0); Vitamin D 25-OH Total 25.7 ng/mL (>30)
== END 2023-05-04 09:29 | disposition home or self-care (01) ==
LOC: HO.LAB 09:28
PROVIDERS: PCP Internal Medicine; Visit Provider Internal Medicine
DX: E03.9 Hypothyroidism, unspecified (principal); E55.9 Vitamin D deficiency, unspecified; E78.5 Hyperlipidemia, unspecified; E78.00 Pure hypercholesterolemia, unspecified
CPT/HCPCS: 36415; 80053; 80061; 82306; 84443

== ENCOUNTER 2023-05-11 08:21 | Outpatient (AMB) | payer OTHER, SELFPAY ==
--- NOTE | 2023-05-11 08:32 | MHC.PC.OV ---
Vital Signs 05/11/23 08:35 Height 5 ft 5 in Weight 176 lb BMI 29.3 BP 110/80 Blood Pressure Location Lt brachial Position Sitting Intake Visit Reasons: PE Intake Note: Patient here for a physical exam Machine I Coremaker Required: No Accompanied by: Self / Same As Patient Allergies No Known Allergies [No Known Allergies*] Allergy (Verified 05/11/23 08:54) Medication List - Last Reconciled 05/11/23 by Michelle Wells MD atorvastatin 10 mg PO DAILY docusate sodium (Colace) 200 mg (2 x 100 mg) PO BEDTIME levothyroxine 25 mcg PO QAM sertraline 50 mg PO DAILY 90 days Tobacco use date assessed: 05/11/23 Dental Screening Dental Screen Date: 05/11/23 Did you have a dental visit in the last 12 months?: Yes Did you have a dental problem in the last 6 months where you did not have access to dental care?: No Was dental information given to patient?: Patient has dentist HPI HPI Comments History of Present Illness Details This is a 62-year-old female with mild major depression that comes for her physical exam. Depression has been stable with medications. Last mammogram was July 2022 and was normal. Last colonoscopy was 2017 and was normal and next colonoscopy should be 2027. Last Pap smear was 2022 and needed a biopsy due to postmenopausal bleeding. Bleeding has resolved but was instructed that if bleeding restarts she will most likely need a hysterectomy. No chest pain or shortness of breath. [facility] Medical History (Updated 05/11/23 @ 09:03 by Michelle Wells MD) Postmenopausal bleeding Rectal bleeding Mild major depression Obesity Pure hypercholesterolemia Hypothyroidism Surgical History (Updated 05/11/23 @ 08:58 by Michelle Wells MD) History of cervical polypectomy Hx of colonoscopy Family History Father Diabetes Asthma Hypertension Mother Diabetes Stroke Son Chronic mental illness Schizophrenia Daughter Hypertension Maternal Grandfather Prostate cancer Family/Other Chronic mental illness Family/Other History of breast cancer Other Mental health problem Social History Household Members Other:: lives alone, has family nearby Housing: Apartment Alcohol intake: never Patient Tobacco Use Status: Never used Tobacco e-Cigarette/Vaping Use: Never Used Second Hand Smoke Exposure: No service: No Current occupational status: disabled Cognitive needs: No Hearing needs: No Vision needs: Yes Questionnaire PHQ-9 Over the last 2 weeks, how often have you been bothered by any of the following problems? 1. Little interest or pleasure in doing things: not at all 2. Feeling down, depressed, or hopeless: not at all 3. Trouble falling or staying asleep, or sleeping too much: not at all 4. Feeling tired or having little energy: not at all 5. Poor appetite or overeating: not at all 6. Feeling bad about yourself - or that you are a failure or have let yourself or your family down: not at all 7. Trouble concentrating on things, such as reading the newspaper or watching television: not at all 8. Moving or speaking so slowly that other people could have noticed. Or the opposite - being so fidgety or restless that you have been moving around a lot more than usual: not at all 9. Thoughts that you would be better off or of hurting yourself in some way: not at all Total score: 0 Depression Screening Interpretation: Negative Depression Screening Done: Yes [id number] - PHQ-9 Billing: Yes Source: Developed by Drs. Jose Miller, Shadia Marin, Izaiah Adams and colleagues, with an educational demond from [email or web address]. Thrive Questionnaire Date Thrive assessed: 05/11/23 I am a: Patient What is your living situation today?: I have a steady place to live Within the past 12 months, did the food you bought not last and you didn't have the money to get more?: Never true Within the past 12 months, did you worry whether your food would run out before you got money to buy more?: Never true Do you have trouble paying for medicines?: No Do you have trouble getting transportation to medical appointments?: No Do you have trouble paying your heating and electricity bill?: No Do you have trouble taking care of your child, family member or friend?: No Do you have trouble with day-to-day activities such as bathing, preparing meals, shopping, managing finances, etc.?: No Are you currently unemployed and looking for a job?: No Are you interested in more education?: No Please select the resources that you would like help with: None Currently or been in a relationship where the following occur: no concerns reported THRIVE Score: 0 AUDIT C Alcohol Use Questionnaire (AUDIT-C) 1. How often do you have a drink containing alcohol?: Never Total Score: 0 ESTRELLA-7 AMB Questionnaire ESTRELLA-7 Date ESTRELLA - 7 assessed: 05/11/23 Feeling nervous, anxious, or on edge: 0 = Not at all Not being able to stop or control worryin = Not at all Worrying too much about different things: 0 = Not at all Trouble relaxin = Not at all Being so restless that it is hard to sit still: 0 = Not at all Becoming easily annoyed or irritable: 0 = Not at all Feeling afraid as if something awful might happen: 0 = Not at all Total ESTRELLA-7 score (0-4 normal; 5-9 mild; 10-14 moderate; 15-21 severe): 0 Source: Developed by Drs. Jose Miller, Shadia Marin, Izaiah Adams and colleagues, with an educational demond from [email or web address]. ESTRELLA-7 Assessment Billing ESTRELLA-7 Assessment Tool: ESTRELLA-7 Assessment 43066 Review of Systems Const All systems reviewed & are unremarkable except as noted in HPI and below Eyes Reports no additional complaints, Denies change in vision and Denies other visual disturbances Card Denies chest pain at rest, Denies chest pain with activity, Denies edema, Denies irregular heart rhythm, Denies claudication, Denies dyspnea, Denies dyspnea on exertion, Denies orthopnea, Denies paroxysmal nocturnal dyspnea and Denies slow heart rate Resp Denies cough, Denies dyspnea and Denies dyspnea on exertion GI Denies abdominal pain, Denies change in bowel habits, Denies excessive flatus, Denies nausea and Denies vomiting Denies urinary incontinence, Denies urinary hesitancy and Denies urinary urgency Musc Denies abnormal gait, Denies atrophy, Denies deformity and Denies limited range of motion Skin/Breast Denies bleeding lesions, Denies changing lesions and Denies rash Neuro Denies abnormal gait, Denies behavioral changes, Denies confusion and Denies lack of coordination Psych Denies behavioral changes and Denies confusion Physical exam (Primary Care) Vital Signs: Last Vital Signs BP 110/80 05/11/23 08:35 BMI result Body Mass Index 29.3 Tobacco/Smoking Status: Tobacco use Status Tobacco use date assessed 05/11/23 05/11/23 08:41 Patient Tobacco Use Status Never used Tobacco 05/11/23 08:33 e-Cigarette/Vaping Use Never Used 05/11/23 08:33 PHQ-9: PHQ-9 Score PHQ-9: Total score 0 05/11/23 08:59 Depression Screening Interpretation: Negative Thrive Assessment: Date of Thrive Assessment Date Thrive assessed 05/11/23 05/11/23 08:41 Currently or been in a relationship where the following occur: no concerns reported Const General: No confusion Orientation/consciousness: patient oriented x3 and No confusion HENMT Head: Yes normal to inspection, Yes normocephalic and Yes atraumatic Ears: external ears normal Eyes General: appearance normal, both eyes and all related structures Eyelids: Yes eyelids normal Conjunctivae: conjunctivae normal Neck Neck: Yes normal visual inspection and Yes supple Resp Effort & Inspection: normal respiratory effort Auscultation: clear to auscultation bilaterally Cardio Jugular venous distension: no JVD Rate: regular rate Rhythm: regular rhythm Heart sounds: S1 normal heart sound present and S2 normal heart sound present GI Inspection: Yes normal to inspection Palpation (GI): Soft to palpation and nontender Auscultation: normal bowel sounds Skin General skin exam: no rashes or lesions noted Neuro General: patient oriented x3, no focal motor deficits and No confusion Extrem General: Yes full ROM Psych Appearance: grossly normal Assessment and Plan Assessment & Plan (1) Physical exam: Code(s): Z00.00 - Encounter for general adult medical examination without abnormal findings Plan: Repeat in a year. (2) Mild major depression: Code(s): F32.0 - Major depressive disorder, single episode, mild Plan: Continue SSRIs. Orders: Orders Lipid Panel 6 Months E78.5 - Hyperlipidemia, unspecified Comprehensive [place]. Panel Fast 6 Months Z00.00 - Encounter for general adult medical examination without abnormal findings Complete Blood Count Auto Diff 6 Months N95.0 - Postmenopausal bleeding Medications: New cholecalciferol (vitamin D3) 25 mcg PO DAILY 90 days 90 caps 1RF E55.9 - Vitamin D deficiency, unspecified Coding Level of Care Code Est Pt Prev Care 40-64y(42560) Diagnoses Physical exam Z00.00 Mild major depression F32.0 Additional Codes ESTRELLA-7 Assessment Billing - ESTRELLA-7 Assessment Tool: ESTRELLA-7 Assessment 97361 ([id number]) Time Spent (min) 33
[2023-05-11 08:35] VITALS: BP 110/80; BMI 29.3
== END 2023-05-11 09:11 | disposition home or self-care (01) ==
PROVIDERS: Visit Provider Internal Medicine
DX: Z00.00 Encounter for general adult medical examination without abnormal findings (principal); F32.0 Major depressive disorder, single episode, mild
CPT/HCPCS: 99396

== ENCOUNTER 2023-08-23 07:49 | Outpatient (REF) | payer OTHER, SELFPAY | END 2023-08-23 07:50 | disposition home or self-care (01) | LOC: HO.MAMMO 07:49 | PROVIDERS: PCP Internal Medicine; Visit Provider Internal Medicine | DX: Z12.31 Encounter for screening mammogram for malignant neoplasm of breast (principal) | CPT/HCPCS: 77063; 77067 ==

== ENCOUNTER → 2023-08-23 09:45 | Outpatient (BNV) | payer OTHER, SELFPAY | PROVIDERS: PCP Internal Medicine; Visit Provider Radiology Diagnostic Radiology | DX: Z12.31 Encounter for screening mammogram for malignant neoplasm of breast (principal) | CPT/HCPCS: 77063; 77067 ==

== ENCOUNTER 2023-10-10 10:06 | Outpatient (AMB) | payer OTHER, SELFPAY ==
[2023-10-10 10:09] VITALS: BP 120/86; BMI 29.3
--- NOTE | 2023-10-10 10:09 | MHC.OFFVIS ---
Vital Signs 10/10/23 10:09 Height 5 ft 5 in Weight 176 lb BMI 29.3 BP 120/86 Intake Visit Reasons: Annual Sinhala speaking Art Glass Setter Required: Yes Art Glass Setter Language: Pastry Cook Services: Art Glass Setter Present (in person) Art Glass Setter Name: Kristi TINOCO Information Interpreted: non-clinical & clinical Director Of Corporate Marketing: Director Of Corporate Marketing Present (Kristi TINOCO) Accompanied by: Self / Same As Patient Allergies No Known Allergies [No Known Allergies*] Allergy (Verified 10/10/23 10:11) Post menopausal: Yes HPI Comments Details: Presenting for annual exam. Complaining of left nipple lesion has grown in size recently Last Pap/HPV was negative in 07/17 Last Mammogram was BI-RADS 1 in 08/17 Last Colonoscopy was done in 07/12, the recommendation was to repeat in 10 years [facility] Medical History Postmenopausal bleeding Rectal bleeding Mild major depression Obesity Pure hypercholesterolemia Hypothyroidism Surgical History History of cervical polypectomy Hx of colonoscopy Family History Father Diabetes Asthma Hypertension Mother Diabetes Stroke Son Chronic mental illness Schizophrenia Daughter Hypertension Maternal Grandfather Prostate cancer Family/Other Chronic mental illness Family/Other History of breast cancer Other Mental health problem Social History Household Members Other:: lives alone, has family nearby Housing: Apartment Alcohol intake: never Patient Tobacco Use Status: Never used Tobacco e-Cigarette/Vaping Use: Never Used Second Hand Smoke Exposure: No service: No Current occupational status: disabled Cognitive needs: No Hearing needs: No Vision needs: Yes Female Reproductive History Menstrual Menopause type: natural Date of last pap smear: 07/14/22 Date of Mammogram: 08/23/23 Review of Systems Const All systems reviewed & are unremarkable except as noted in HPI and below Card Reports as per HPI Resp Reports as per HPI GI Reports as per HPI and Reports no additional complaints Reports as per HPI Physical Exam Vital Signs: Last Vital Signs BP 120/86 10/10/23 10:09 BMI result Body Mass Index 29.3 Const General: cooperative, healthy appearing and comfortable Chest Chest palpation & inspection: normal inspection of the chest and normal palpation of entire chest wall Breast/axilla inspection: inspection of breasts abnormal (Right breast within normal, left nipple lesion) and normal inspection of the axillae Breast/axilla palpation: normal palpation of the breasts, normal palpation of the axillae and no axillary lymphadenopathy Resp Effort & Inspection: normal respiratory effort Auscultation: clear to auscultation bilaterally Percussion: percussion normal Cardio Palpation: normal PMI Rate: regular rate Rhythm: regular rhythm Heart sounds: no murmurs and no rubs Peripheral pulses: Peripheral pulses 2+ throughout GI Inspection: Yes normal to inspection Palpation (GI): Soft to palpation, nontender, no guarding, not rigid and No hepatosplenomegaly present Percussion: Yes normal to percussion Auscultation: normal bowel sounds Rectal Exam - Female: deferred General: Yes bladder normal to palpation External Female Exam: No lesion Speculum Exam - Vagina: normal appearance of the vagina, normal palpation, normal vaginal discharge and not erythematous Speculum Exam - Cervix: normal appearance of the cervix and normal palpation Bimanual exam- vagina & uterus: normal bimanual exam, normal palpation, uterine size normal, bladder normal to palpation, consistency normal and normal palpation Bimanual Exam- Adnexa, other: normal adnexae, no masses and no tenderness Assessment & Plan Assessment & Plan (1) Well woman exam: Code(s): Z01.419 - Encounter for gynecological examination (general) (routine) without abnormal findings Category: Medical Plan: Co testing not indicated this year. Counseled the patient about the recommended dietary allowance of 1200 mg of Calcium & 600 IU of vitamin D. Instructions given the patient to schedule next screening Mammogram in 08/18. The patient was instructed to perform monthly self-breast exams and schedule annual exam in a year. All questions answered and the patient verbalized understanding. (2) Nipple lesion: Comment: Left-sided Code(s): N64.9 - Disorder of breast, unspecified Category: Medical Plan: Discussed with the patient the finding on physical exam showing a left nipple lesion, refer to general surgery for further management. Instructed the patient to call our office back in case a referral appointment is not scheduled, missed or canceled so that we will assist on rescheduling another appointment, the patient verbalized understanding agreed with the plan. Orders: Referrals General Surgery Referral N64.9 - Disorder of breast, unspecified Coding Level of Care Code Est Pt Prev Care 40-64y(88980) Diagnoses Well woman exam Z01.419 Nipple lesion N64.9
== END 2023-10-10 13:25 | disposition home or self-care (01) ==
LOC: HO.HWS 10:06
PROVIDERS: PCP Internal Medicine; Visit Provider Obstetrics & Gynecology
DX: Z01.419 Encounter for gynecological examination (general) (routine) without abnormal findings (principal); N64.9 Disorder of breast, unspecified
CPT/HCPCS: 99396

== ENCOUNTER → 2023-10-10 10:06 | Outpatient (BNVA) | payer OTHER, SELFPAY | PROVIDERS: PCP Internal Medicine; Visit Provider Obstetrics & Gynecology | DX: Z01.419 Encounter for gynecological examination (general) (routine) without abnormal findings (principal); N64.9 Disorder of breast, unspecified | CPT/HCPCS: 99396 ==

== ENCOUNTER 2023-11-03 11:51 | Outpatient (REF) | payer OTHER, SELFPAY ==
[2023-11-03 12:06] LABS: MANUAL DIFF FLAG NO
[2023-11-03 13:20] LABS: Basophils Absolute Auto 0.1 X10*3/uL (0.0-0.2); Basophils Percent Auto 1.5 % (0-2); Eosinophils Percent Auto 1.2 % (0-4); Hematocrit 40.5 % (37.0-47.0); Hemoglobin 13.3 g/dl (12.0-16.0); Imm Gran Abs Auto 0.01 X10*3/uL (0.00-0.03); Imm Gran Pct Auto 0.3 % (0.0-0.4); Lymphocytes Absolute Auto 1.3 X10*3/uL (1.2-4.9); Lymphocytes Percent Auto 36.4 % (20-40); Mean Corpuscular HGB Conc 32.8 g/dl (31.0-35.0); Mean Corpuscular Hemoglobin 30.4 pg (27.0-33.0); Mean Corpuscular Volume 92.7 fL (80.0-98.0); Mean Platelet Volume 10.8 fL (9.4-12.3); Monocytes Absolute Auto 0.3 X10*3/uL (0.1-1.2); Monocytes Percent Auto 7.9 % (2-11); Neutrophils Absolute Auto 1.8 x10*3/uL (2.0-8.3); Neutrophils Percent Auto 52.7 % (45-73); Platelet Count 230 X10*3/uL (160-400); Red Blood Count 4.37 X10*6/uL (4.20-5.50); Red Cell Distribution Width 14.5 % (11.0-16.0); White Blood Count 3.4 X10*3/uL (4.8-10.8)
[2023-11-03 13:54] LABS: Alanine Aminotransferase 15 U/L (0-31); Alkaline Phosphatase 112 U/L (39-117); Anion Gap 9 (12-20); Aspartate Amino Transferase 21 U/L (5-31); Bilirubin Total 0.6 mg/dL (0.0-1.0); Blood Urea Nitrogen 13 mg/dL (9-16); Calcium 9.6 mg/dL (8.4-10.2); Carbon Dioxide 29 mmol/L (22-29); Chloride 110 mmol/L (96-108); Cholesterol 140 mg/dL (<200); Estimated Glomerular Filt Rate > 60; Glucose Fasting 77 mg/dL (60-99); HDL Cholesterol 44 mg/dL (>40); LDL Cholesterol Calculated 86 mg/dL (<100); Potassium 4.5 mmol/L (3.3-5.1); Sodium 143 mmol/L (135-145); Total Protein 7.5 g/dL (6.5-8.0); Triglycerides 52 mg/dL (<150)
== END 2023-11-03 11:52 | disposition home or self-care (01) ==
LOC: HO.LAB 11:51
PROVIDERS: PCP Internal Medicine; Visit Provider Internal Medicine
DX: Z00.00 Encounter for general adult medical examination without abnormal findings (principal); N95.0 Postmenopausal bleeding; E78.5 Hyperlipidemia, unspecified
CPT/HCPCS: 36415; 80053; 80061; 85025

== ENCOUNTER 2023-11-07 11:18 | Outpatient (AMB) | payer OTHER, SELFPAY ==
--- NOTE | 2023-11-07 11:18 | MHC.PC.OV ---
Vital Signs 11/07/23 11:20 Height 5 ft 5 in Weight 173 lb BMI 28.8 BP 112/70 Blood Pressure Location Lt brachial Position Sitting Intake Visit Reasons: 6 Month F/U Intake Note: Patient here for a 6 month follow up Pharmacology Associate Required: No Accompanied by: Self / Same As Patient Allergies No Known Allergies [No Known Allergies*] Allergy (Verified 11/07/23 11:22) Medication List - Last Reconciled 11/07/23 by Michelle Wells MD atorvastatin 10 mg PO DAILY cholecalciferol (vitamin D3) 25 mcg PO DAILY 90 days docusate sodium (Colace) 200 mg (2 x 100 mg) PO BEDTIME levothyroxine 25 mcg PO QAM sertraline 50 mg PO DAILY 90 days Tobacco use date assessed: 05/11/23 Dental Screening Dental Screen Date: 05/11/23 HPI HPI Comments History of Present Illness Details This is a 63-year-old female with mild recurrent major depression, hypothyroidism, dyslipidemia, chronic idiopathic constipation and hypovitaminosis D that comes today for follow-up on her conditions. Depression stable with SSRIs and follow by Psychiatry. Last TSH was normal. Cholesterol well controlled with statins. Constipation stable with Colace as needed and high-fiber diet. On vitamin-D supplements for her low vitamin-D any chest pain or shortness on breath. Is intentionally losing weight. REPLACED BY [facility] Medical History Postmenopausal bleeding Rectal bleeding Mild major depression Obesity Pure hypercholesterolemia Hypothyroidism Surgical History History of cervical polypectomy Hx of colonoscopy Family History Father Diabetes Asthma Hypertension Mother Diabetes Stroke Son Chronic mental illness Schizophrenia Daughter Hypertension Maternal Grandfather Prostate cancer Family/Other Chronic mental illness Family/Other History of breast cancer Other Mental health problem Social History Household Members Other:: lives alone, has family nearby Housing: Apartment Alcohol intake: never Patient Tobacco Use Status: Never used Tobacco e-Cigarette/Vaping Use: Never Used Second Hand Smoke Exposure: No service: No Current occupational status: disabled Cognitive needs: No Hearing needs: No Vision needs: Yes Questionnaire Thrive Questionnaire Date Thrive assessed: 05/11/23 ESTRELLA-7 AMB Questionnaire ESTRELLA-7 Date ESTRELLA - 7 assessed: 05/11/23 Source: Developed by Drs. Jose Miller, Shadia Marin, Izaiah Adams and colleagues, with an educational demond from [employer]. Review of Systems Const All systems reviewed & are unremarkable except as noted in HPI and below Card Denies chest pain at rest, Denies chest pain with activity, Denies edema, Denies irregular heart rhythm, Denies claudication, Denies dyspnea, Denies dyspnea on exertion, Denies orthopnea, Denies paroxysmal nocturnal dyspnea and Denies slow heart rate Resp Denies cough, Denies dyspnea and Denies dyspnea on exertion GI Denies abdominal pain, Denies change in bowel habits, Denies excessive flatus, Denies nausea and Denies vomiting Denies urinary incontinence, Denies urinary hesitancy and Denies urinary urgency Physical exam (Primary Care) Vital Signs: Last Vital Signs BP 112/70 11/07/23 11:20 BMI result Body Mass Index 28.8 Tobacco/Smoking Status: Tobacco use Status Tobacco use date assessed 05/11/23 11/07/23 11:20 Patient Tobacco Use Status Never used Tobacco 11/07/23 11:20 e-Cigarette/Vaping Use Never Used 11/07/23 11:20 Thrive Assessment: Date of Thrive Assessment Date Thrive assessed 05/11/23 11/07/23 11:20 Resp Effort & Inspection: normal respiratory effort Auscultation: clear to auscultation bilaterally Cardio Jugular venous distension: no JVD Rate: regular rate Rhythm: regular rhythm Heart sounds: S1 normal heart sound present and S2 normal heart sound present Extrem General: Yes full ROM Psych Appearance: grossly normal Assessment and Plan Assessment & Plan (1) Mild major depression: Code(s): F32.0 - Major depressive disorder, single episode, mild Plan: Continue SSRIs. Follow-up with psychiatry. (2) Hypothyroidism: Code(s): E03.9 - Hypothyroidism, unspecified Qualifiers: Hypothyroidism type: unspecified Qualified Code(s): E03.9 - Hypothyroidism, unspecified Plan: Continue levothyroxine. Monitor TSH. (3) Pure hypercholesterolemia: Code(s): E78.00 - Pure hypercholesterolemia, unspecified Plan: Continue statins. Continue low-cholesterol diet. Repeat lipid panel in 6 months. (4) Hypovitaminosis D: Code(s): E55.9 - Vitamin D deficiency, unspecified Plan: Continue vitamin-D. (5) Chronic idiopathic constipation: Code(s): K59.04 - Chronic idiopathic constipation Plan: Continue Colace as needed. Continue high-fiber diet. Orders: Orders Lipid Panel 6 Months E78.5 - Hyperlipidemia, unspecified Thyroid Stimulating Hormone 6 Months E03.9 - Hypothyroidism, unspecified Vitamin D 25-OH Total 6 Months E55.9 - Vitamin D deficiency, unspecified Comprehensive Nelson. Panel Fast 6 Months E78.00 - Pure hypercholesterolemia, unspecified Coding Level of Care Code Est Pt Level 4 (65182) Complex EM visit Add On G2211 Diagnoses Mild major depression F32.0 Hypothyroidism, unspecified type E03.9 Hypothyroidism type: unspecified Pure hypercholesterolemia E78.00 Hypovitaminosis D E55.9 Chronic idiopathic constipation K59.04 Time Spent (min) 22
[2023-11-07 11:20] VITALS: BP 112/70; BMI 28.8
== END 2023-11-07 11:30 | disposition home or self-care (01) ==
LOC: HO.HMGH 11:18
PROVIDERS: PCP Internal Medicine; Visit Provider Internal Medicine
DX: E03.9 Hypothyroidism, unspecified (principal); F32.0 Major depressive disorder, single episode, mild; E78.00 Pure hypercholesterolemia, unspecified; E55.9 Vitamin D deficiency, unspecified; K59.04 Chronic idiopathic constipation
CPT/HCPCS: 99214; G2211

== ENCOUNTER 2024-01-16 09:16 | Outpatient (REF) | payer OTHER, SELFPAY | END 2024-01-16 09:17 | disposition home or self-care (01) | LOC: HO.LAB 09:16 | PROVIDERS: PCP Internal Medicine; Visit Provider Internal Medicine | DX: Z13.89 Encounter for screening for other disorder (principal) ==

== ENCOUNTER 2024-05-08 09:45 | Outpatient (REF) | payer OTHER, SELFPAY ==
--- OUTSIDE RECORDS SUMMARY | 2024-05-08 11:17 | XMS_ITS | Encounter Summary ---
Author Organization [facility] Address [address] [place] [address] Care Team Providers Care Executive Sales Assistant Name Role Phone Unavailable Primary Care Provider Unavailabl e Reason for Visit * Reason Comments Routine Cleaning Dental Exam x-rays Encounter Details Date Type Department Care Team (Late st Contact Info) Description 04/16/2024 8:00 AM EST Office Visit [facility] ADULT DENTAL [address] [place] [address] Farheen Polanco [address] [place] [address] Dental plaque (Primary Dx); Generalized gingival recession; Missing teeth, acquired Social History Tobacco Use Types Packs/Day Years Used Date Smoking Tobacco: Never Passive Smoke Exposure: Never Smokeless Tobacco: Never Alcohol Use Standard Drinks/Week Comments Never 0 (1 standard drink = 0.6 oz pur e alcohol) Comments Unknown Sex and Gender Information Value Date Recorded Sex Assigned at Female 01/24/2022 10:30 AM EDT Legal Sex Female 10:30 AM EDT Gender Identity Choose not to disclose 10:30 AM EDT Sexual Orientation Choose not to disclose 2021 10:30 AM EDT documented as of this encounter Last Filed Vital Signs Vital Sign Reading Time Taken Comments Blood Pressure 122/68 04/16/2024 8:06 AM EST Pulse - - Temperature - - Respiratory Rate - - Oxygen Saturation - - Inhaled Oxygen Concentration - - Weight - - Height - - Body Mass Index - - documented in this encounter Progress Notes * Farheen Polanco - 04/16/2024 8:00 AM EST Patient ID: Sherrell Lemon is a 63 y.o. adult. Time Out: Timeout Date: 04/16/24, Timeout Time: 0809 (P. exam, prophy, x-rays,) Location: [facility] Tooth: Maxilla and Mandible Procedure: Exam, X-rays, Prophylaxis, and Perio chart , Dr. Stark did P. Exam. Verified the above with patient, operations manager assistant, and provider. Confirmed via patient's chart, intraorally and by radiographs. Worship Pastor: not applicable Medical Hx: Vitals: Blood pressure 122/68. Medications, Med Hx reviewed with patient and updated in chart. Treatment Provided Dental procedures in this visit D1110 - PROPHYLAXIS - ADULT Full (Completed) Service provider: Farheen Monge provider: Tai Stark DDS D0274 - BITEWINGS - 4 RADIOGRAPHIC IMAGES (Completed) Service provider: Farheen Monge provider: Tai Stark DDS D1330 - ORAL HYGIENE INSTRUCTIONS (Completed) Service provider: Farheen Monge provider: Tai Stark DDS D0220 - INTRAORAL - PERIAPICAL FIRST RADIOGRAPHIC IMAGE (Completed) Service provider: Farheen Monge provider: Tai Stark DDS D0230 - INTRAORAL - PERIAPICAL EACH ADDITIONAL RADIOGRAPHIC IMAGE (Completed) Service provider: Farheen Polanco [place] provider: Tai Stark DDS D9450 - ADJUNCTIVE GENERAL SERVICES - PROFESSIONAL VISITS - CASE PRESENTATION, SUBSEQUENT TO DETAILED AND EXTENSIVE TREATMENT PLANNING (Completed) Service provider: Farheen Monge provider: Tai Stark DDS D0230 - INTRAORAL - PERIAPICAL EACH ADDITIONAL RADIOGRAPHIC IMAGE (Completed) Service provider: Farheen Polanco [place]or provider: Tai Stark DDS Instruments Used: Ultrasonic Scalers, Hand Scalers, and Prophy angle, perio probe and x-ray sensor Fluoride: N/A Oral Cancer Screening: No lesions Head/Neck Exam: raised mole on upper lip right side. Calculus: None Plaque: Light Stain: None Bleeding: None Gingiva: Recession- generalized and pink/magenta OH: Good Perio Chart: Completed Oral hygiene instructions provided to patient including brushing technique and flossing. Recommendations: [place] two times daily, modified aguayo technique, Floss daily, Electric toothbrush, Soft bristle toothbrush, [place] Tongue, Anti-sensitivity toothpaste Recall Frequency: 6 mo for prophy NV: Dr. Stark restorations and add teeth to lower partial. Hygienist: Farheen Polanco RDH * Tai Stark DDS - 04/16/2024 8:00 AM EST Dental procedures in this visit D1110 - PROPHYLAXIS - ADULT Full (Completed) Service provider: Farheen Polanco Billing provider: Tai Stark DDS D0274 - BITEWINGS - 4 RADIOGRAPHIC IMAGES (Completed) Service provider: Farheen Polanco [place]or provider: Tai Stark DDS D1330 - ORAL HYGIENE INSTRUCTIONS (Completed) Service provider: Farheen Polanco [place] provider: Tai Stark DDS D0220 - INTRAORAL - PERIAPICAL FIRST RADIOGRAPHIC IMAGE (Completed) Service provider: Farheen Polanco [place] provider: Tai Stark DDS D0230 - INTRAORAL - PERIAPICAL EACH ADDITIONAL RADIOGRAPHIC IMAGE (Completed) Service provider: Farheen Polanco [place] provider: Tai Stark DDS D9450 - ADJUNCTIVE GENERAL SERVICES - PROFESSIONAL VISITS - CASE PRESENTATION, SUBSEQUENT TO DETAILED AND EXTENSIVE TREATMENT PLANNING (Completed) Service provider: Farheen Polanco [place] provider: Tia Stark DDS D0230 - INTRAORAL - PERIAPICAL EACH ADDITIONAL RADIOGRAPHIC IMAGE (Completed) Service provider: Farheen Polanco [place] provider: Tai Stark DDS D0120 - PERIODIC ORAL EVALUATION - ESTABLISHED PATIENT (Completed) Service provider: Tai Stark DDS [place] provider: Tai Stark DDS D5650 - ADD TOOTH TO EXISTING PARTIAL DENTURE 30 (Completed) Service provider: Tai Stark DDS [place] provider: Tai Stark DDS Patient ID: Sherrell Lemon is a 63 y.o. adult. Time Out: Timeout Date: 04/16/24, Timeout Time: 0809 (P. exam, prophy, x-rays,) Location: [facility] Tooth: Maxilla and Mandible Procedure: Exam, X-rays, Prophylaxis, and Dentures Verified the above with patient, operations manager assistant, and provider. Confirmed via patient's chart, intraorally and by radiographs. Worship Pastor: not applicable Chief Complaint Patient presents with Routine Cleaning Dental Exam x-rays Medical Hx: Vitals: Blood pressure 122/68. Past Medical History: Diagnosis Date Disease of thyroid gland High cholesterol Medications: Outpatient Encounter Medications as of 04/16/2024 Medication Sig Dispense Refill atorvastatin (Lipitor) 10 MG tablet Take 10 mg by mouth in the morning. D3-1000 25 MCG (1000 UT) capsule Take 10 mcg by mouth Once per day. docusate sodium (Colace) 100 MG capsule TAKE 2 CAPSULES BY MOUTH EVERY NIGHT AT BEDTIME levothyroxine (Synthroid, Levoxyl) 25 MCG tablet TOME MICHOACANO TABLETA TODOS LOS D EN HAJA CHOI Melatonin Maximum Strength 5 MG tablet TOME MICHOACANO TABLETA TODOS LOS D AL ACOSTARSE Proctofoam HC 1-1 % foam APLIQUE AL MAXX AFECTADA RECTALLY DOS VECES AL D A CUANDO SEA NECESARIO FORHEMORRHOIDS sertraline (Zoloft) 50 MG tablet TOME MICHOACANO TABLETA TODOS LOS D EN HAJA CHOI No facility-administered encounter medications on file as of 04/16/2024. Objective HPI Asymptomatic Head and Neck Exam: Lymph Nodes, Lips, Palate, Buccal Mucosa, Floor of Mouth, Tongue, Tonsils, Alveolar Ridges, Oropharynx, Salivary Ducts, and Vestibules Details: Skin WNL OCS: negative Dental Exam As charted Reference tooth chart for additional findings. Oral Cancer Risk: Low Risk Oral Hygiene Instructions: [place] two times daily, modified aguayo technique, Floss daily, Electric toothbrush, Soft bristle toothbrush, [place] Tongue, Anti- sensitivity toothpaste, Prevident, Chlorhexidine Caries Risk Assessment: Low- no risk factor No active carious lesions noticed Assessment/Plan RAJEEV X Rays Prophy Delivery of repair / added tooth # 30 Patient tolerated procedure well, all questions answered and expressed understanding. Dismissed in good condition. NV: F/U denture / re eval # 15 Weights And Measures Inspector: Farheen Polanco Dentist: Tai Stark DDS documented in this encounter Plan of Treatment Upcoming Encounters Date Type Department Care Team (Late st Contact Info) Description 05/28/2024 3:30 PM EST Office Visit [facility] ADULT DENTAL [address] [place], [place] [phone] Tai Stark DDS [address] [place], [place] [phone] 06/03/2024 9:00 AM EDT Office Visit [facility] ADULT DENT[facility] [address] [place] [address] NavarroTai red DDS [address] [place] [address] 10/15/2024 1:00 PM EDT Office Visit [facility] ADULT DENT[facility] [address] [place] [address] Farheen Polanco [address] [place] [address] Scheduled Orders Name Type Priority Associated Diagnoses Orde r Schedule PROPHYLAXIS - ADULT Dental Routine 1 Occ urrences starting 04/16/2024 ADJUNCTIVE GENERAL SERVICES - PROFESSIONAL VISITS - CASE PRESENTATION, SUBSEQUENT TO DETAILED AND EXTENSIVE TREATMENT PLANNING Dental Routine 1 Occurrence s starting 04/16/2024 ORAL HYGIENE INSTRUCTIONS Dental Routine 1 Occurrences starting 04/16/2024 documented as of this encounter Procedures Procedure Name Priority Date/Time Associated Diagnosis Comments Full PROPHYLAXIS - ADULT Routine 025 8:00 AM EST Dental plaque PERIODIC ORAL EVALUATION - ESTABLISHED PATIENT Routine 04/16/2024 8:00 AM EST ORAL HYGIENE INSTRUCTIONS Routine 04/16/2024 8:00 AM EST Dental plaque Generalized gingival recession Missing teeth, acquired INTRAORAL - PERIAPICAL FIRST RADIOGRAPHIC IMAGE Routine 04/16/2024 8:00 AM EST Dental plaque Generalized gingival recession Missing teeth, acquired INTRAORAL - PERIAPICAL EACH ADDITIONAL RADIOGRAPHIC IMAGE Routine 04/16/2024 8:00 AM EST Dental plaque Generalized gingival recession Missing teeth, acquired INTRAORAL - PERIAPICAL EACH ADDITIONAL RADIOGRAPHIC IMAGE Routine 04/16/2024 8:00 AM EST Dental plaque Generalized gingival recession Missing teeth, acquired ADJUNCTIVE GENERAL SERVICES - PROFESSIONAL VISITS - CASE PRESENTATION, SUBSEQUENT TO DETAILED AND EXTENSIVE TREATMENT PLANNING Routine 04/16/2024 8:00 AM EST Dental plaque Generalized gingival recession Missing teeth, acquired BITEWINGS - 4 RADIOGRAPHIC IMAGES Routine 04/16/2024 8:00 AM EST Dental plaque Generalized gingival recession Missing teeth, acquired 30 ADD TOOTH TO EXISTING PARTIAL DENTURE Routine 04/16/2024 8:00 AM EST documented in this encounter Visit Diagnoses Diagnosis Dental plaque- Primary Accretions on teeth Generalized gingival recession Gingival recession, generalized Missing teeth, acquired documented in this encounter
--- OUTSIDE RECORDS SUMMARY | 2024-05-08 11:17 | XMS_ITS | Encounter Summary ---
Author Organization [facility] Address [address] [place] [address] Care Team Providers Care Dry Clipper Tender Name Role Phone Unavailable Primary Care Provider Unavailabl e Reason for Visit * Reason Comments Dentures Encounter Details Date Type Department Care Team (Late st Contact Info) Description 04/30/2024 10:00 AM EST Office Visit [facility] ADULT DENTAL [address], [place] [phone] Tai Stark DDS [address], [place] [phone] Partial edentulism, unspecified edentulism class (Primary Dx) Social History Tobacco Use Types Packs/Day Years [...] Sign Reading Time Taken Comments Blood Pressure 126/76 04/30/2024 9:53 AM EST Pulse - - Temperature - - Respiratory Rate - - Oxygen Saturation - - Inhaled Oxygen Concentration - - Weight - - Height - - Body Mass Index - - documented in this encounter Progress Notes * Tai Stark DDS - 04/30/2024 10:00 AM EST Patient ID: Sherrell Lemon is a 63 y.o. adult. Time Out: Timeout Date: 04/30/24 (bite reg), Timeout Time: 09 Location: [facility] Tooth: Mandible only Procedure: Dentures Verified the above with patient, personal assistant, and provider. Confirmed via patient's chart, intraorally and by radiographs. Child Protective Services Specialist: not applicable Chief Complaint Patient presents with Dentures Medical Hx: Vitals: Blood pressure 126/76. Medications, Med Hx reviewed with patient and updated in chart. Consent Obtained: The risks, benefits, indications, potential complications, and alternatives were explained to the patient and informed consent was obtained with good understanding. Treatment Provided: Dental procedures in this visit D5110 - BITE REGISTRATION Occlusal Wax rims tried in & records taken: -Vertical Dimension -Midline -Interpupillary line -Occlusal Relationship -Smile Line -Canine [place] Bite Registration taken with: Wax Tooth Selection: [employer] Mould: [place]ade: A 2 Size: Sent to Lab for tooth set up in wax Lab used: [facility] Lab Due Date: 05-07-24 Patient discharged alert, oriented, and in stable condition. NV: Try in Linen Room Worker: Letty Talbot Dentist: Tai Stark DDS documented in this encounter Plan of Treatment Upcoming Encounters Date Type Department Care Team (Late st Contact Info) Description 05/28/2024 3:30 PM EST Office Visit [facility] ADULT DENTAL [address] [place] [address] Tai Stark DDS [address] [place] [address] 06/03/2024 9:00 AM EDT Office Visit [facility] ADULT DENTAL [address] [place] [address] Tai Stark DDS [address] [place] [address] 10/15/2024 1:00 PM EDT Office Visit [facility] ADULT DENTAL [address] [place] [address] Farheen Polanco [address] [place] [address] documented as of this encounter Procedures Procedure Name Priority Date/Time Associated Diagnosis Comments BITE REGISTRATION Routine 04/30/2024 10:00 AM EST documented in this encounter Visit Diagnoses Diagnosis Partial edentulism, unspecified edentulism class- Primary documented in this encounter
--- OUTSIDE RECORDS SUMMARY | 2024-05-08 11:17 | XMS_ITS | Encounter Summary ---
Author Organization [facility] Address [address] [place] [address] Care Team Providers Care Purification Operator Helper Name Role Phone Unavailable Primary Care Provider Unavailabl e Reason for Visit * Reason Comments Dentures Encounter Details Date Type Department Care Team (Late st Contact Info) Description 04/08/2024 8:30 AM EST Office Visit [facility] ADULT DENTAL [address] [place], [place] [phone] Tai Stark DDS [address] [place], [place] [phone] Missing teeth, acquired (Primary Dx) Social History Tobacco Use Types [...] Sign Reading Time Taken Comments Blood Pressure 126/74 04/08/2024 7:57 AM EST Pulse - - Temperature - - Respiratory Rate - - Oxygen Saturation - - Inhaled Oxygen Concentration - - Weight - - Height - - Body Mass Index - - documented in this encounter Progress Notes * Tai Stark DDS - 04/08/2024 8:30 AM EST Patient ID: Sherrell Lemon is a 63 y.o. adult. Time Out: Timeout Date: 04/08/24 (impression on lower partial), Timeout Time: 075 Location: [facility] Tooth: Mandible ONLY Procedure: Dentures RPD Verified the above with patient, pier master assistant, and provider. Confirmed via patient's chart, intraorally and by radiographs. Quality Assurance Nurse: not applicable Chief Complaint Patient presents with Dentures Medical Hx: Vitals: Blood pressure 126/74. Medications, Med Hx reviewed with patient and updated in chart. Consent Obtained: The risks, benefits, indications, potential complications, and alternatives were explained to the patient and informed consent was obtained with good understanding. Treatment Provided: Dental procedures in this visit D5750.1 - DENTURE IMPRESSION (Completed) Service provider: Tai Stark DDS Billing provider: Tai Stark DDS Impression taken with [place] of Maxilla and Mandible Case sent to lab to fabricate record base and wax rims. Lab used: [email or web address] Lab Due Date: 04-22-24 Patient discharged alert, oriented, and in stable condition. NV: RAJEEV X Rays and BITE Reg Frame Nailer: Letty Eller Dentist: Tai Stark DDS documented in this encounter Plan of Treatment Upcoming Encounters Date Type Department Care Team (Late st Contact Info) Description 05/28/2024 3:30 PM EST Office Visit [facility] ADULT DENTAL [address] [place] [address] Tai Stark DDS [address] [place] [address] 06/03/2024 9:00 AM EDT Office Visit [facility] ADULT DENTAL [address] [place] [address] Tai Stark DDS [address] [place] [address] 10/15/2024 1:00 PM EDT Office Visit [facility] ADULT DENTAL [address] [place] [address] Farheen Polanco [address] [place] [address] Scheduled Orders Name Type Priority Associated Diagnoses Orde r Schedule WAX TRY IN Dental Routine 1 Occurrences starting 04/08/2024 documented as of this encounter Procedures Procedure Name Priority Date/Time Associated Diagnosis Comments DENTURE IMPRESSION Routine 04/08/2024 8:30 AM EST documented in this encounter Visit Diagnoses Diagnosis Missing teeth, acquired- Primary documented in this encounter
--- OUTSIDE RECORDS SUMMARY | 2024-05-08 11:17 | XMS_ITS | Encounter Summary ---
Author Organization [facility] Address [address] [place] [address] Care Team Providers Care Documentation Supervisor Name Role Phone Unavailable Primary Care Provider Unavailabl e Encounter Details Date Type Department Care Team (Latest Contact Info) Description 10/22/2018 Abstract [facility] Dental, Provider, DDS Social History Tobacco Use Types Packs/Day Years Used Date Smoking Tobacco: Never Assessed Comments Unknown Sex and Gender Information Value Date Recorded Sex Assigned at Female 01/24/2022 10:30 AM EDT Legal Sex Female 10:30 AM EDT Gender Identity Choose not to disclose 10:30 AM EDT Sexual Orientation Choose not to disclose 2021 10:30 AM EDT documented as of this encounter Plan of Treatment Upcoming Encounters Date Type Department Care Team (Late st Contact Info) Description 05/28/2024 3:30 PM EST Office Visit [facility] ADULT DENTAL [address] [place] [address] Tai Stark, DDS [address] [place] [address] 06/03/2024 9:00 AM EDT Office Visit [facility] ADULT DENTAL [address] [place] [address] Tai Stark, DDS [address] [place] [address] 10/15/2024 1:00 PM EDT Office Visit [facility] ADULT DENTAL [address] [place] [address] Farheen Polanco [address] [place] [address] documented as of this encounter Visit Diagnoses Not on filedocumented in this encounter
--- OUTSIDE RECORDS SUMMARY | 2024-05-08 11:18 | XMS_ITS | Clinical Summary ---
Author Organization [employer] Address [address] [place] [address] [address] [place] [address] Care Team Providers Care Administration Internship Name Role Phone Unavailable Primary Care Provider Unavailabl e Allergies No known active allergies Medications atorvastatin (Lipitor) 10 MG tablet Take 10 mg by mouth in the morning. 3 Active docusate sodium (Colace) 100 MG capsule TAKE 2 CAPSULES BY MOUTH EVERY NIGHT AT BEDTIME 3 Active Proctofoam HC 1-1 % foam APLIQUE AL MAXX AFECTADA RECTALLY DOS VECES AL D A CUANDO SEA NECESARIO FOR HEMORRHOIDS 3 Active levothyroxine (Synthroid, Levoxyl) 25 MCG tablet TOME MICHOACANO TABLETA TODOS LOS D EN LA CRUZ JIMBO 3 Active Melatonin Maximum Strength 5 MG tablet TOME MICHOACANO TABLETA TODOS LOS D AL ACOSTARSE 3 Active sertraline (Zoloft) 50 MG tablet TOME MICHOACANO TABLETA TODOS LOS D EN HAJA ARROYO JIMBO 3 Active D3-1000 25 MCG (1000 UT) capsule Take 10 mcg by mouth Once per day. 4 Active Active Problems Problem Noted Date Diagnosed Date Uterine polyp 03/21/2024 Normal oral exam 09/21/2023 Dental root caries 03/08/2023 Partial edentulism 12/09/2022 Generalized gingival recession 12/09/2022 Dental plaque 12/09/2022 Encounters Date Type Department Care Team Description 04/30/2024 10:00 AM EST Office Visit [facility] ADULT [facility] [address] [place], [place] [phone] Tai Stark DDS Partial edentulism, unspecified edentulism class (Primary Dx) 04/16/2024 8:00 AM EST Office Visit [facility] ADULT [facility] [address] [place] [address] Farheen Polanco Dental plaque (Primary Dx); Generalized gingival recession; Missing teeth, acquired 04/08/2024 8:30 AM EST Office Visit [facility] ADULT [facility] [address] [place] [address] Tai Stark DDS Missing teeth, acquired (Primary Dx) 03/21/2024 3:00 PM EST Office Visit [facility] ADULT [facility] [address] [place] [address] Tai Stark DDS Uterine polyp (Primary Dx) from Last 3 Months Social History Tobacco Use Types Packs/Day Years Used Date Smoking Tobacco: Never Passive Smoke Exposure: Never Smokeless Tobacco: Never Tobacco Cessation:Counseling Given: Not Answered Alcohol Use Standard Drinks/Week Comments Never 0 (1 standard drink = 0.6 oz pur e alcohol) Comments Unknown Sex and Gender Information Value Date Recorded Sex Assigned at Female 01/24/2022 10:30 AM EDT Legal Sex Female 10:30 AM EDT Gender Identity Choose not to disclose 10:30 AM EDT Sexual Orientation Choose not to disclose 2021 10:30 AM EDT Last Filed Vital Signs Vital Sign Reading Time Taken Comments Blood Pressure 126/76 04/30/2024 9:53 AM EST Pulse 88 03/21/2024 2:10 PM EST Temperature - - Respiratory Rate - - Oxygen Saturation - - Inhaled Oxygen Concentration - - Weight - - Height - - Body Mass Index - - Plan of Treatment Upcoming Encounters Date Type Department Care Team (Late st Contact Info) Description 05/28/2024 3:30 PM EST Office Visit [facility]ULT D[facility] [address] [place] [address] Tai Stark DDS [address] [place] [address] 06/03/2024 9:00 AM EDT Office Visit [facility]ULT [facility] [address] [place] [address] Tai Stark DDS [address] [place] [address] 10/15/2024 1:00 PM EDT Office Visit [facility]ULT [facility] [address] [place] [address] Farheen Polnaco [address] [place] [address] Health Maintenance Due Date Last Done Comments CT Colonography 1960 Colonoscopy 1960 Colorectal Cancer Screening 1960 Depression Screening 1960 FIT DNA/Cologuard 1960 FIT 1960 FOBT 1960 HIV Screening 1960 SDOH Screening 1960 Sigmoidoscopy 1960 Alcohol/Substance Use Screening 1972 Hepatitis C Screening 1978 Pap Smear 1981 Cervical Cancer Screening 1990 HPV/Cotest 1990 Mammogram 2000 Pneumococcal Vaccine: 50+ Years (1 of 1 - PCV) 2010 Zoster Vaccines (2 of 2) 01/09/2018 11/14/2017 COVID-19 Vaccine ( season) 2023 08/17/2021, 09/07/2020, 08/03/2020 Influenza Vaccine (#1) 2023 9, 12/14/2017, 12/21/2016, Additional history exists Dental Oral Exam 10/15/2024 04/16/2024, , 12/18/2018, Additional history exists Dental Prophylaxis 10/15/2024 04/16/2024, 0 12/09/2022, 04/26/2019, Additional history exists Dental X-Ray: Bitewings 04/17/2025 04/16/19, 11/15/2022, 04/23/2018, Additional history exists Tobacco Screening 04/30/2025 04/30/2024 Dental X-Ray: Full Mouth 11/16/2025 11/15/2022, 05/2016 DTaP/Tdap/Td Vaccines (2 - Td or Tdap) 03/18/2026 03/18/2016 RSV Patients and Patients Aged 60 years or older (1 - 1-dose 75+ series) 07/23/2035 HIB Vaccines Aged Out No longer eligi ble based on patient's age to complete this topic HPV Vaccines Aged Out No longer eligi ble based on patient's age to complete this topic Hepatitis A Vaccines Aged Out No long er eligible based on patient's age to complete this topic Hepatitis B Vaccines Aged Out No long er eligible based on patient's age to complete this topic IPV Vaccines Aged Out No longer eligi ble based on patient's age to complete this topic Meningococcal Vaccine Aged Out No flynn pascual eligible based on patient's age to complete this topic RSV under 20 months Aged Out No longe r eligible based on patient's age to complete this topic Rotavirus Vaccines Aged Out No longer eligible based on patient's age to complete this topic Procedures Procedure Name Priority Date/Time Associated Diagnosis Comments BITE REGISTRATION Routine 04/30/2024 10: 00 AM EST 30 ADD TOOTH TO EXISTING PARTIAL DENTURE Routine 04/16/2024 8:00 AM EST PERIODIC ORAL EVALUATION - ESTABLISHED PATIENT Routine 04/16/2024 8:00 AM EST INTRAORAL - PERIAPICAL EACH ADDITIONAL RADIOGRAPHIC IMAGE [...] plaque Generalized gingival recession Missing teeth, acquired ORAL HYGIENE INSTRUCTIONS Routine 2024 8:00 AM EST Dental plaque Generalized gingival recession Missing teeth, acquired BITEWINGS - 4 RADIOGRAPHIC IMAGES Routine 04/16/2024 8:00 AM EST Dental plaque Generalized gingival recession Missing teeth, acquired Full PROPHYLAXIS - ADULT Routine 025 8:00 AM EST Dental plaque DENTURE IMPRESSION Routine 04/08/2024 8: 30 AM EST 14 D RESTORATIVE - AMALGAM RESTORATIONS (INCLUDING POLISHING) - AMALGAM - ONE SURFACE, PRIMARY OR PERMANENT Routine 03/21/2024 3:00 PM EST ADJUNCTIVE GENERAL SERVICES - PROFESSIONAL VISITS - CASE PRESENTATION, SUBSEQUENT TO DETAILED AND EXTENSIVE TREATMENT PLANNING Routine 03/21/2024 3:00 PM EST DENTURE IMPRESSION Routine 03/21/2024 3: 00 PM EST 13 DO RESTORATIVE - AMALGAM RESTORATIONS (INCLUDING POLISHING) - AMALGAM - TWO SURFACES, PRIMARY OR PERMANENT Routine 03/21/2024 3:00 PM EST DIAGNOSTIC - DIAGNOSTIC IMAGING - INTRAORAL - COMPREHENSIVE SERIES OF RADIOGRAPHIC IMAGES Routine 11/15/2022 2:00 PM EDT from Last 3 Months or Most Recently Relevant to Health Maintenance Insurance [place] [employer] [place] AD[place]
[2024-05-08 11:23] LABS: Alanine Aminotransferase 17 U/L (0-31); Albumin Level 4.3 g/dL (3.5-5.0); Alkaline Phosphatase 121 U/L (39-117); Anion Gap 10 (12-20); Aspartate Amino Transferase 25 U/L (5-31); Bilirubin Total 0.7 mg/dL (0.0-1.0); Blood Urea Nitrogen 12 mg/dL (9-16); Calcium 9.5 mg/dL (8.4-10.2); Carbon Dioxide 26 mmol/L (22-29); Chloride 110 mmol/L (96-108); Cholesterol 161 mg/dL (<200); Estimated Glomerular Filt Rate > 60; Glucose Fasting 90 mg/dL (60-99); HDL Cholesterol 47 mg/dL (>40); LDL Cholesterol Calculated 101 mg/dL (<100); Sodium 141 mmol/L (135-145); Total Protein 8.3 g/dL (6.5-8.0); Triglycerides 69 mg/dL (<150)
[2024-05-08 11:51] LABS: Vitamin D 25-OH Total 29.8 ng/mL (>30)
== END 2024-05-08 09:46 | disposition home or self-care (01) ==
LOC: HO.LAB 09:45
PROVIDERS: PCP Internal Medicine; Visit Provider Internal Medicine
DX: E78.00 Pure hypercholesterolemia, unspecified (principal); E55.9 Vitamin D deficiency, unspecified; E03.9 Hypothyroidism, unspecified; E78.5 Hyperlipidemia, unspecified
CPT/HCPCS: 36415; 80053; 80061; 82306; 84443

== ENCOUNTER 2024-05-14 13:13 | Outpatient (AMB) | payer OTHER, SELFPAY ==
--- NOTE | 2024-05-14 13:15 | A.OFFPC_ITS ---
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 She reports a stable regimen of levothyroxine 25 mcg for her thyroid and sertraline 50 mg for depression. She denies current symptoms of depression, indicating effective management with sertraline. Thyroid function tests have returned normal according to recent lab results. Additionally, the patient requires osteoporosis screening due to age-related risk factors, as she expressed concerns about bone health. She has not undergone a bone density test in the past and remains free of symptoms such as chest pain, dyspnea, or cough. Recent lab work shows her vitamin D level slightly below normal, and she acknowledges mild concerns related to feeling voice hoarseness prompting a referral to an shovel logger for further evaluation. She is maintaining atorvastatin 10 mg for hyperlipidemia and takes Colace for constipation management. - Mammogram performed last year, next du e as per guidelines - Colonoscopy performed in 2017, next du e in 2027 - Ubemjkw-mnzsbrfibh-dbrakuxwt pertussis (Tdap) vaccination in 2015, next due in 2025 - Pap smear performed in 2022 - Vitamin D below normal (29.8), recomme ndation for re-evaluation and possible supplementation - Referred for bone densitometry scan fo r osteoporosis screening - Flu vaccination to be administered dur ing this visit - Recent labs show excellent renal funct ion, normal calcium, and cholesterol levels are very good [facility] Medical History (Updated 05/14/24 @ 13:58 by Michelle Wells MD) Postmenopausal bleeding Rectal bleeding Mild major depression Obesity Pure hypercholesterolemia Hypothyroidism Surgical History History of cervical polypectomy Hx of colonoscopy Family History Father Diabetes Asthma Hypertension Mother Diabetes Stroke Son Chronic mental illness Schizophrenia Daughter Hypertension Maternal Grandfather Prostate cancer Family/Other Chronic mental illness Family/Other History of breast cancer Other Mental health problem Social History Household Members Other:: lives alone, has family nearby Housing: Apartment Alcohol intake: never Patient Tobacco Use Status: Never used Tobacco e-Cigarette/Vaping Use: Never Used Second Hand Smoke Exposure: No service: No Current occupational status: disabled Cognitive needs: No Hearing needs: No Vision needs: Yes Questionnaire PHQ-9 Over the last 2 weeks, how often have you been bothered by any of the following problems? 1. Little interest or pleasure in doing things: not at all 2. Feeling down, depressed, or hopeless: not at all 3. Trouble falling or staying asleep, or sleeping too much: not at all 4. Feeling tired or having little energy: not at all 5. Poor appetite or overeating: not at all 6. Feeling bad about yourself - or that you are a failure or have let yourself or your family down: not at all 7. Trouble concentrating on things, such as reading the newspaper or watching television: not at all 8. Moving or speaking so slowly that other people could have noticed. Or the opposite - being so fidgety or restless that you have been moving around a lot more than usual: not at all 9. Thoughts that you would be better off or of hurting yourself in some way: not at all Total score: 0 Depression Screening Interpretation: Negative Depression Screening Done: Yes 86306 - PHQ-9 Billing: Yes Source: Developed by Drs. Jose Miller, Shadia Marin, Izaiah Adams and colleagues, with an educational demond from [employer]. Thrive Questionnaire Date Thrive assessed: 05/14/24 I am a: Patient What is your living situation today?: I have a steady place to live Within the past 12 months, did the food you bought not last and you didn't have the money to get more?: Never true Within the past 12 months, did you worry whether your food would run out before you got money to buy more?: Never true Do you have trouble paying for medicines?: No Do you have trouble getting transportation to medical appointments?: No Do you have trouble paying your heating and electricity bill?: No Do you have trouble taking care of your child, family member or friend?: No Do you have trouble with day-to-day activities such as bathing, preparing meals, shopping, managing finances, etc.?: No Are you currently unemployed and looking for a job?: No Are you interested in more education?: No Please select the resources that you would like help with: None Currently or been in a relationship where the following occur: No concerns reported THRIVE Score: 0 AUDIT C Alcohol Use Questionnaire (AUDIT-C) 1. How often do you have a drink containing alcohol?: Never Total Score: 0 ESTRELLA-7 AMB Questionnaire ESTRELLA-7 Date ESTRELLA - 7 assessed: 05/14/24 Feeling nervous, anxious, or on edge: 0 = Not at all Not being able to stop or control worryin = Not at all Worrying too much about different things: 0 = Not at all Trouble relaxin = Not at all Being so restless that it is hard to sit still: 0 = Not at all Becoming easily annoyed or irritable: 0 = Not at all Feeling afraid as if something awful might happen: 0 = Not at all Total ESTRELLA-7 score (0-4 normal; 5-9 mild; 10-14 moderate; 15-21 severe): 0 Source: Developed by Drs. Jose Miller, Shadia Marin, Izaiah Adams and colleagues, with an educational demond from [employer]. ESTRELLA-7 Assessment Billing ESTRELLA-7 Assessment Tool: ESTRELLA-7 Assessment 42767 Review of Systems Const All systems reviewed & are unremarkable except as noted in HPI and below Card Denies chest pain at rest, Denies chest pain with activity, Denies edema, Denies irregular heart rhythm, Denies claudication, Denies dyspnea, Denies dyspnea on exertion, Denies orthopnea, Denies paroxysmal nocturnal dyspnea and Denies slow heart rate Resp Denies cough, Denies dyspnea and Denies dyspnea on exertion GI Denies abdominal pain, Denies change in bowel habits, Denies excessive flatus, Denies nausea and Denies vomiting Neuro Denies behavioral changes and Denies lack of coordination Psych Denies behavioral changes Physical exam (Primary Care) Vital Signs: Last Vital Signs BP 120/82 05/14/24 13:17 BMI result Body Mass Index 30.1 BMI Assessment/Plan discussion: High BMI High, discussed plan: lifestyle, weight reduction, dietary and physical activity Tobacco/Smoking Status: Tobacco use Status Tobacco use date assessed 05/14/24 05/14/24 13:22 Patient Tobacco Use Status Never used Tobacco 05/14/24 13:19 e-Cigarette/Vaping Use Never Used 05/14/24 13:19 PHQ-9: PHQ-9 Score PHQ-9: Total score 0 05/14/24 13:39 Depression Screening Interpretation: Negative Thrive Assessment: Date of Thrive Assessment Date Thrive assessed 05/14/24 05/14/24 13:19 Currently or been in a relationship where the following occur: No concerns reported HENMT Head: Yes normal to inspection, Yes normocephalic and Yes atraumatic Ears: external ears normal Eyes General: appearance normal, both eyes and all related structures Eyelids: Yes eyelids normal Conjunctivae: conjunctivae normal Neck Neck: Yes normal visual inspection and Yes supple Resp Effort & Inspection: normal respiratory effort Auscultation: clear to auscultation bilaterally Cardio Jugular venous distension: no JVD Rate: regular rate Rhythm: regular rhythm Heart sounds: S1 normal heart sound present and S2 normal heart sound present GI Inspection: Yes normal to inspection Palpation (GI): Soft to palpation and nontender Auscultation: normal bowel sounds Skin General skin exam: no rashes or lesions noted Neuro General: no focal motor deficits Extrem General: Yes full ROM Psych Appearance: grossly normal Office Procedures Flu Questionnaire Does the patient have a severe egg allergy?: No Does the patient have severe life threatening allergies?: No Does the patient have a fever or illness today?: No Has the patient ever had Guillain-[place] Syndrome?: No Has the patient ever had any past reaction to a flu shot?: No Immunizations Fluarix Triv [id number] (PF) 45 mcg (15 mcg x 3)/0.5 mL IM syringe Performing Provider: Michelle Wells MD [facility] Administered by: ALEJANDRINA Marley on 05/14/24 13:42 Dose Route Admin Location Dispensed Lot Number Expiration Date NDC Retail Loss Prevention Investigator 0.5 mL IM Right Deltoid 0.5 mL [id number] 09/23/24 [id number] [employer] VIS Given Date VIS Provided VIS Publication Date 05/14/24 Single Vaccine 20 Eligibility Eligibility Date Funding Source Not [facility] Eligible 05/14/24 Private Coding Level of Care Code Est Pt Level 3 (32487) Est Pt Prev Care 40-64y(36371) Diagnoses Physical exam Z00.00 Mild major depression F32.0 Voice hoarseness R49.0 Additional Codes ESTRELLA-7 Assessment Billing - ESTRELLA-7 Assessment Tool: ESTRELLA-7 Assessment 23287 ([id number]) PHQ-9 - 13390 - PHQ-9 Billing: Yes ([id number]) Time Spent (min) 33 Assessment & Plan Assessment & Plan (1) Physical exam: Code(s): Z00.00 - Encounter for general adult medical examination without abnormal findings Category: Medical (2) Mild major depression: Code(s): F32.0 - Major depressive disorder, single episode, mild Category: Medical (3) Voice hoarseness: Code(s): R49.0 - Dysphonia Category: Medical Plan - Continue sertraline 50 mg daily for depressive disorder with anxiety - Continue levothyroxine 25 mcg daily for hypothyroidism, based on normal thyroid function tests - Maintain atorvastatin 10 mg daily for hyperlipidemia - Continue Colace as needed for constipation management - Administer flu vaccination during this visit - Obtain bone densitometry for osteoporosis screening - Schedule otolaryngology referral for evaluation of nasal congestion symptoms - Repeat laboratory evaluations in six months for routine monitoring Patient was informed and verbally consented to the use of an ambient scribe for clinic note documentation during this visit. During today?s visit, we discussed the patient?s ongoing management plan for her current diagnoses, which includes a stable regimen of levothyroxine and sertraline. I emphasized the importance of continued medication adherence and periodic lab monitoring. We discussed initiating osteoporosis screening with a bone densitometry scan due to age-related risks, and I explained the procedure and its benefits. I also clarified the use and purpose of atorvastatin for lipid management. We reviewed her vitamin D levels and considered supplementation if levels remain low. The patient agreed to continue her plan for routine laboratory tests every six months. I provided information on the importance of receiving the flu vaccine, and she consented to receive it today. Additionally, I recommended an shovel logger referral to further evaluate her symptoms of nasal congestion. Orders: Orders Influenza [id number] Immunization Today Z23 - Encounter for immunization Vitamin D 25-OH Total 6 Months E55.9 - Vitamin D deficiency, unspecified Comprehensive [place]. Panel Fast 6 Months E78.00 - Pure hypercholesterolemia, unspecified Thyroid Stimulating Hormone 6 Months E03.9 - Hypothyroidism, unspecified Lipid Panel 6 Months E78.00 - Pure hypercholesterolemia, unspecified, E78.5 - Hyperlipidemia, unspecified Patient Instructions: - Continue all current medications as prescribed - Receive flu vaccine today before leaving - Schedule and complete bone densitometry for osteoporosis screening - Monitor for any new or worsening symptoms and follow up if necessary - Follow up with an ENT specialist as scheduled for evaluation of nasal symptoms - Maintain a balanced diet and consider vitamin D supplementation as needed
[2024-05-14 13:17] VITALS: BP 120/82; BMI 30.1
--- OUTSIDE RECORDS SUMMARY | 2024-05-14 14:11 | XMS_ITS | Encounter Summary ---
Author Organization [employer] [facility] Address [address] [place] [address] Care Team Providers Care Economic Developer Name Role Phone Unavailable Primary Care Provider Unavailabl e Reason for Visit * Reason Comments Dentures Encounter Details Date Type Department Care Team (Late st Contact Info) Description 04/30/2024 10:00 AM EST Office Visit [facility] ADULT DENTAL [address] [place], [place] [phone] Tai Stark DDS [address] [place], [place] [phone] Partial edentulism, unspecified edentulism class (Primary Dx) [...] 04/30/24 (bite reg), Timeout Time: 09 Location: [facility] Tooth: Mandible only Procedure: Dentures Verified the above with patient, registered nurse first assistant, and provider. Confirmed via patient's chart, intraorally and by radiographs. Aromatherapist: not applicable Chief Complaint Patient presents with [...] -Interpupillary line -Occlusal Relationship -Smile Line -Canine [place] Bite Registration taken with: Wax Tooth Selection: QFPay Mould: Shade: A 2 Size: Sent to Lab for tooth set up in wax Lab used: [facility] Due Date: 05-07-24 Patient discharged alert, oriented, and in stable condition. NV: Try in Manager Nicu: Letty Talbot Dentist: Tai Stark DDS documented in this encounter Plan of Treatment Upcoming Encounters Date Type Department Care Team (Late st Contact Info) Description 05/28/2024 3:30 PM EST Office Visit [facility]ULT D[facility] [address] [place] [address] Tai Stark DDS [address] [place] [address] 06/03/2024 9:00 AM EDT Office Visit [facility] D[facility] [address] [place] [address] Tai Stark DDS [address] [place] [address] 10/15/2024 1:00 PM EDT Office Visit [facility] [address] [place] [address] Farheen Polanco [address] [place] [address] Scheduled Orders Name Type Priority Associated Diagnoses Orde r Schedule 31,30,29,20,19 31,30,29,20,19 MANDIBULAR PARTIAL DENTURE - RESIN BASE (INCLUDING, RETENTIVE/CLASPING MATERIALS, RESTS, AND TEETH) Dental Routine [address] arting 05/09/2024 documented as of this encounter Procedures Procedure Name Priority Date/Time Associated Diagnosis Comments BITE REGISTRATION Routine 04/30/2024 10:00 AM EST documented in this encounter Visit Diagnoses Diagnosis Partial edentulism, unspecified edentulism class- Primary documented in this encounter
--- OUTSIDE RECORDS SUMMARY | 2024-05-14 14:11 | XMS_ITS | Encounter Summary ---
Author Organization [employer] [facility] Address [address] [place] [address] Care Team Providers Care Sales Agent Insurance Name Role Phone Unavailable Primary Care Provider Unavailabl e Encounter Details Date Type Department Care Team (Latest Contact Info) Description 10/22/2018 Abstract [facility] CONVERSIONS Dental, Provider, DDS Social History [...] Description 05/28/2024 3:30 PM EST Office Visit [facility] ADULT DENT[facility] [address] [place] [address] Tai Stark, DDS [address] [place] [address] 06/03/2024 9:00 AM EDT Office Visit [facility] ADULT D[facility] [address] [place] [address] Tai Stark, DDS [address] [place] [address] 10/15/2024 1:00 PM EDT Office Visit [facility] ADULT DENT[facility] [address] [place] [address] Farheen Polanco [address] [place] [address] documented as of this encounter Visit Diagnoses Not on filedocumented in this encounter
--- OUTSIDE RECORDS SUMMARY | 2024-05-14 14:11 | XMS_ITS | Encounter Summary ---
Author Organization [employer] [facility] Address [address] [place] [address] Care Team Providers Care Manager Of Production Name Role Phone Unavailable Primary Care Provider Unavailabl e Reason for Visit * Reason Comments Routine Cleaning Dental Exam x-rays Encounter Details Date Type Department Care Team (Late st Contact Info) Description 04/16/2024 8:00 AM EST Office Visit [facility] ADULT DENTAL [address] [place] [address] Farheen Polanco [address] [place] [address] Dental plaque (Primary Dx); Generalized gingival recession; [...] Time: 0809 (P. exam, prophy, x-rays,) Location: [facility] Tooth: Maxilla and Mandible Procedure: Exam, X-rays, Prophylaxis, and Perio chart , Dr. Stark did P. Exam. Verified the above with patient, lead assistant manager, and provider. Confirmed via patient's chart, intraorally and by radiographs. Quilting Machine Helper: not applicable Medical Hx: Vitals: Blood pressure [...] patient including brushing technique and flossing. Recommendations: Morris two times daily, modified aguayo technique, Floss daily, Electric toothbrush, Soft bristle toothbrush, Morris Tongue, Anti-sensitivity toothpaste Recall Frequency: 6 mo [...] Time: 0809 (P. exam, prophy, x-rays,) Location: [facility] Tooth: Maxilla and Mandible Procedure: Exam, X-rays, Prophylaxis, and Dentures Verified the above with patient, lead assistant manager, and provider. Confirmed via patient's chart, intraorally and by radiographs. Quilting Machine Helper: not applicable Chief Complaint Patient presents with [...] Cancer Risk: Low Risk Oral Hygiene Instructions: Morris two times daily, modified aguayo technique, Floss daily, Electric toothbrush, Soft bristle toothbrush, Morris Tongue, Anti- sensitivity toothpaste, Prevident, Chlorhexidine Caries Risk Assessment: Low- no risk factor No active carious lesions noticed Assessment/Plan RAJEEV X Rays Prophy Delivery of repair / added tooth # 30 Patient tolerated procedure well, all questions answered and expressed understanding. Dismissed in good condition. NV: F/U denture / re eval # 15 Quarry Manager: Farheen Polanco Dentist: Tai Stark DDS documented in this encounter Plan of Treatment Upcoming Encounters Date Type Department Care Team (Late st Contact Info) Description 05/28/2024 3:30 PM EST Office Visit [facility] ADULT DENTAL [address] [place], [place] [phone] Tai Stark DDS [address] [place] [place], [place] [phone] 06/03/2024 9:00 AM EDT Office Visit [facility] ADULT DENTAL [address] [place] [address] Lincoln Tai, DDS [address] [place] [address] 10/15/2024 1:00 PM EDT Office Visit [facility] ADULT DENTAL [address] [place] [address] Farheen Polanco [address] [place] [address] Scheduled Orders Name Type Priority Associated Diagnoses [...] plaque Generalized gingival recession Missing teeth, acquired CASE PRESENTATION, DETAILED AND EXTENSIVE TREATMENT PLANNING Routine 04/16/2024 [...]
--- OUTSIDE RECORDS SUMMARY | 2024-05-14 14:11 | XMS_ITS | Clinical Summary ---
Author Organization [employer] Address [address] [place] [address] [address] [place] [address] Care Team Providers Care Vp Of Global Marketing Name Role Phone Unavailable Primary Care Provider [...] Description 04/30/2024 10:00 AM EST Office Visit [facility] ADULT DENTAL [address] [place], [place] [phone] Tai Stark DDS Partial edentulism, unspecified edentulism class (Primary Dx) 04/16/2024 8:00 AM EST Office Visit [facility] ADULT DENTAL [address] [place] [address] Farheen Polanco Dental plaque (Primary Dx); Generalized gingival recession; Missing teeth, acquired 04/08/2024 8:30 AM EST Office Visit [facility] ADULT DENTAL [address] [place] [address] Tai Stark DDS Missing teeth, acquired (Primary Dx) 03/21/2024 3:00 PM EST Office Visit [facility] ADULT DENTAL [address] [place] [address] Tai Stark DDS Uterine polyp (Primary Dx) [...] Description 05/28/2024 3:30 PM EST Office Visit [facility] ADULT DENTAL [address] [place] [address] Tai Stark DDS [address] [place] [address] 06/03/2024 9:00 AM EDT Office Visit [facility] ADULT DENTAL [address] [place] [address] Tai Stark DDS [address] [place] [address] 10/15/2024 1:00 PM EDT Office Visit [facility] ADULT DENTAL [address] [place] [address] Farheen Polanco [address] [place] [address] Health Maintenance Due Date Last Done Comments [...] Missing teeth, acquired ORAL HYGIENE INSTRUCTIONS Routine 04/16/2024 8:00 AM EST Dental plaque Generalized gingival recession Missing teeth, acquired BITEWINGS - 4 RADIOGRAPHIC IMAGES Routine 04/16/2024 8:00 AM EST Dental plaque Generalized gingival recession Missing teeth, acquired Full PROPHYLAXIS - ADULT Routine 025 8:00 AM EST Dental plaque DENTURE IMPRESSION Routine 04/08/2024 8: 30 AM EST 14 D AMALGAM - 1 SURF, PRIMARY OR PERMANENT Routine 03/21/2024 3:00 PM EST CASE PRESENTATION, DETAILED AND EXTENSIVE TREATMENT PLANNING Routine 03/21/2024 3:00 PM EST DENTURE IMPRESSION Routine 03/21/2024 3: 00 PM EST 13 DO AMALGAM - 2 SURF, PRIMARY OR PERMANENT Routine 03/21/2024 3:00 PM EST INTRAORAL - COMPLETE SERIES OF RADIOGRAPHIC IMAGES Routine 11/15/2022 2:00 PM EDT from Last 3 Months or Most Recently Relevant to Health Maintenance Insurance [facility] [employer] STAND ADULT
== END 2024-05-14 13:48 | disposition home or self-care (01) ==
PROVIDERS: PCP Internal Medicine; Visit Provider Internal Medicine
DX: Z00.00 Encounter for general adult medical examination without abnormal findings (principal); F32.0 Major depressive disorder, single episode, mild; R49.0 Dysphonia; Z23 Encounter for immunization

== ENCOUNTER → 2024-05-14 13:13 | Outpatient (BNVA) | payer OTHER, SELFPAY | PROVIDERS: PCP Internal Medicine; Visit Provider Internal Medicine | DX: Z00.00 Encounter for general adult medical examination without abnormal findings (principal); Z23 Encounter for immunization; F32.0 Major depressive disorder, single episode, mild; R49.0 Dysphonia | CPT/HCPCS: 90471; 90656; 96127; 99396 ==

== ENCOUNTER 2024-11-07 10:22 | Outpatient (REF) | payer OTHER, SELFPAY ==
[2024-11-07 11:08] LABS: Alanine Aminotransferase 17 U/L (0-31); Albumin Level 4.3 g/dL (3.5-5.0); Alkaline Phosphatase 115 U/L (39-117); Anion Gap 10 (12-20); Aspartate Amino Transferase 25 U/L (5-31); Blood Urea Nitrogen 13 mg/dL (9-16); Calcium 9.4 mg/dL (8.4-10.2); Carbon Dioxide 29 mmol/L (22-29); Chloride 109 mmol/L (96-108); Cholesterol 208 mg/dL (<200); Estimated Glomerular Filt Rate > 60; HDL Cholesterol 48 mg/dL (>40); Potassium 4.5 mmol/L (3.3-5.1); Sodium 143 mmol/L (135-145); Total Protein 7.4 g/dL (6.5-8.0); Triglycerides 66 mg/dL (<150)
--- OUTSIDE RECORDS SUMMARY | 2024-11-07 11:10 | XMS_ITS | Encounter Summary ---
Author Organization [facility] Address [address] [place] [address] Care Team Providers Care Gaming Cage Worker Name Role Phone Unavailable Primary Care Provider Unavailabl e Encounter Details Date Type Department Care Team (Latest Contact Info) Description 10/22/2018 Abstract [facility] CONVERSIONS Dental, Provider, DDS Social History Tobacco Use Types Packs/Day Years Used Date Smoking Tobacco: Never Assessed Comments Unknown Sex and Gender Information Value Date Recorded Sex Assigned at Female 01/24/2022 10:30 AM EDT Legal Sex Female 10:30 AM EDT Gender Identity Female 06/25/2024 2:41 PM EDT Sexual Orientation Choose not to disclose 2021 10:30 AM EDT documented as of this encounter Plan of Treatment Upcoming Encounters Date Type Department Care Team (Late st Contact Info) Description 04/30/2025 1:00 PM EST Office Visit [facility] ADULT DENTAL [address] [place] [address] Sherri, Farheen [address] [place] [address] documented as of this encounter Visit Diagnoses Not on filedocumented in this encounter
[2024-11-07 11:23] LABS: Thyroid Stimulating Hormone 3.59 uIU/mL (0.32-4.0)
== END 2024-11-07 10:23 | disposition home or self-care (01) ==
LOC: HO.LAB 10:22
PROVIDERS: PCP Internal Medicine; Visit Provider Internal Medicine
DX: E78.00 Pure hypercholesterolemia, unspecified (principal); E03.9 Hypothyroidism, unspecified; E55.9 Vitamin D deficiency, unspecified
CPT/HCPCS: 36415; 80053; 80061; 82306; 84443

== ENCOUNTER 2024-11-11 09:09 | Outpatient (AMB) | payer OTHER, SELFPAY ==
[2024-11-11 09:29] VITALS: BP 124/68; PULSE 50; RESP 18; TEMP 36.1; O2SAT 97; BMI 28.9
--- NOTE | 2024-11-11 09:29 | MHC.PC.OV ---
Vital Signs 11/11/24 09:29 Height 5 ft 5 in Weight 173 lb 8 oz BMI 28.9 BP 124/68 Blood Pressure Location Lt brachial Position Sitting Respiration 18 Pulse 50 Pulse Source Pulse Oximeter Temp 97 F Temp Source Temporal Artery Scan Pulse Oximetry (%) 97 Oxygen Delivery Method Room Air Intake Visit Reasons: thyroid Payment Collector Required: No Accompanied by: Self / Same As Patient Allergies No Known Allergies (No Known Allergies*) Allergy (Verified 11/11/24 10:02) Medication List - Last Reconciled 11/11/24 by Michelle Wells MD atorvastatin 10 mg PO DAILY cholecalciferol (vitamin D3) 25 mcg PO DAILY 90 days docusate sodium (Colace) 200 mg (2 x 100 mg) PO BEDTIME levothyroxine 25 mcg PO QAM sertraline 50 mg PO DAILY 90 days Tobacco use date assessed: 11/11/24 Fall risk assessment: No Falls in past year Last assessed Fall Risk: 11/11/24 Dental Screening Dental Screen Date: 11/11/24 Did you have a dental visit in the last 12 months?: Yes Did you have a dental problem in the last 6 months where you did not have access to dental care?: No Was dental information given to patient?: Patient has dentist HPI HPI Comments History of Present Illness Details The patient is a 64-year-old female presenting with a follow-up on her chronic conditions. Her blood pressure is well-controlled, and she reports no history of smoking or alcohol consumption. Her cholesterol levels are slightly elevated compared to the last visit, but not significantly concerning. The patient has a history of vitamin D deficiency, which is now near normal with supplementation. Renal function, blood glucose, liver enzymes, and thyroid function are all reported as normal. She mentions a weight loss following a surgery and is currently managing her diet to avoid fatty foods. A referral to an ENT specialist for a throat evaluation is pending, with an appointment expected in February. [facility] Medical History (Updated 11/11/24 @ 11:37 by Michelle Wells MD) Postmenopausal bleeding Rectal bleeding Mild major depression Obesity Pure hypercholesterolemia Hypothyroidism Surgical History History of cervical polypectomy Hx of colonoscopy Family History Father Diabetes Asthma Hypertension Mother Diabetes Stroke Son Chronic mental illness Schizophrenia Daughter Hypertension Maternal Grandfather Prostate cancer Family/Other Chronic mental illness Family/Other History of breast cancer Other Mental health problem Social History Household Members Other:: lives alone, has family nearby Housing: Apartment Alcohol intake: never Patient Tobacco Use Status: Never used Tobacco e-Cigarette/Vaping Use: Never Used Second Hand Smoke Exposure: No service: No Current occupational status: disabled Cognitive needs: No Hearing needs: No Vision needs: Yes Questionnaire PHQ-9 Over the last 2 weeks, how often have you been bothered by any of the following problems? 1. Little interest or pleasure in doing things: not at all 2. Feeling down, depressed, or hopeless: not at all 3. Trouble falling or staying asleep, or sleeping too much: not at all 4. Feeling tired or having little energy: not at all 5. Poor appetite or overeating: not at all 6. Feeling bad about yourself - or that you are a failure or have let yourself or your family down: not at all 7. Trouble concentrating on things, such as reading the newspaper or watching television: not at all 8. Moving or speaking so slowly that other people could have noticed. Or the opposite - being so fidgety or restless that you have been moving around a lot more than usual: not at all 9. Thoughts that you would be better off or of hurting yourself in some way: not at all Total score: 0 Depression Screening Interpretation: Negative Depression Screening Done: Yes 37512 - PHQ-9 Billing: Yes Source: Developed by Drs. Jose Miller, Shadia Marin, Izaiah Adams and colleagues, with an educational demond from [employer]. Thrive Questionnaire Date Thrive assessed: 11/11/24 I am a: Patient What is your living situation today?: I have a steady place to live Within the past 12 months, did the food you bought not last and you didn't have the money to get more?: Never true Within the past 12 months, did you worry whether your food would run out before you got money to buy more?: Never true Do you have trouble paying for medicines?: No Do you have trouble getting transportation to medical appointments?: No Do you have trouble paying your heating and electricity bill?: No Do you have trouble taking care of your child, family member or friend?: No Do you have trouble with day-to-day activities such as bathing, preparing meals, shopping, managing finances, etc.?: No Are you currently unemployed and looking for a job?: No Are you interested in more education?: No Please select the resources that you would like help with: None Currently or been in a relationship where the following occur: No concerns reported THRIVE Score: 0 AUDIT C Alcohol Use Questionnaire (AUDIT-C) 1. How often do you have a drink containing alcohol?: Never Total Score: 0 Score Reviewed/Action Taken: No ESTRELLA-7 AMB Questionnaire ESTRELLA-7 Date ESTRELLA - 7 assessed: 11/11/24 Feeling nervous, anxious, or on edge: 0 = Not at all Not being able to stop or control worryin = Not at all Worrying too much about different things: 0 = Not at all Trouble relaxin = Not at all Being so restless that it is hard to sit still: 0 = Not at all Becoming easily annoyed or irritable: 0 = Not at all Feeling afraid as if something awful might happen: 0 = Not at all Total ESTRELLA-7 score (0-4 normal; 5-9 mild; 10-14 moderate; 15-21 severe): 0 Source: Developed by Drs. Jose Miller, Shadia Marin, Izaiah Adams and colleagues, with an educational demond from [employer]. ESTRELLA-7 Assessment Billing ESTRELLA-7 Assessment Tool: ESTRELLA-7 Assessment 76702 Review of Systems Const All systems reviewed & are unremarkable except as noted in HPI and below Card Denies chest pain at rest, Denies chest pain with activity, Denies edema, Denies irregular heart rhythm, Denies claudication, Denies dyspnea, Denies dyspnea on exertion, Denies orthopnea, Denies paroxysmal nocturnal dyspnea and Denies slow heart rate Resp Denies cough, Denies dyspnea and Denies dyspnea on exertion GI Denies abdominal pain, Denies change in bowel habits, Denies excessive flatus, Denies nausea and Denies vomiting Physical exam (Primary Care) Vital Signs: Last Vital Signs Temp 97 F 11/11/24 09:29 Pulse 50 11/11/24 09:29 Resp 18 11/11/24 09:29 BP 124/68 11/11/24 09:29 Pulse Ox 97 11/11/24 09:29 Oxygen Delivery Method Room Air 11/11/24 09:29 BMI result Body Mass Index 28.9 Tobacco/Smoking Status: Tobacco use Status Tobacco use date assessed 11/11/24 11/11/24 09:30 Patient Tobacco Use Status Never used Tobacco 11/11/24 09:30 e-Cigarette/Vaping Use Never Used 11/11/24 09:30 PHQ-9: PHQ-9 Score PHQ-9: Total score 0 11/11/24 10:05 Depression Screening Interpretation: Negative Thrive Assessment: Date of Thrive Assessment Date Thrive assessed 11/11/24 11/11/24 09:30 Currently or been in a relationship where the following occur: No concerns reported Resp Effort & Inspection: normal respiratory effort Auscultation: clear to auscultation bilaterally Cardio Jugular venous distension: no JVD Rate: regular rate Rhythm: regular rhythm Heart sounds: S1 normal heart sound present and S2 normal heart sound present Extrem General: Yes full ROM Coding Level of Care Code Est Pt Level 4 (26572) Complex EM visit Add On G2211 Diagnoses Hypothyroidism, unspecified type E03.9 Hypothyroidism type: unspecified Pure hypercholesterolemia E78.00 Mild major depression F32.0 Voice hoarseness R49.0 Chronic idiopathic constipation K59.04 Hypovitaminosis D E55.9 Additional Codes ESTRELLA-7 Assessment Billing - ESTRELLA-7 Assessment Tool: ESTRELLA-7 Assessment 03273 ([id number]) PHQ-9 - 56298 - PHQ-9 Billing: Yes ([id number]) Time Spent (min) 23 Assessment & Plan Assessment & Plan (1) Hypothyroidism: Code(s): E03.9 - Hypothyroidism, unspecified Category: Medical Qualifiers: Hypothyroidism type: unspecified Qualified Code(s): E03.9 - Hypothyroidism, unspecified (2) Pure hypercholesterolemia: Code(s): E78.00 - Pure hypercholesterolemia, unspecified Category: Medical (3) Mild major depression: Code(s): F32.0 - Major depressive disorder, single episode, mild Category: Medical (4) Voice hoarseness: Code(s): R49.0 - Dysphonia Category: Medical (5) Chronic idiopathic constipation: Code(s): K59.04 - Chronic idiopathic constipation Category: Medical (6) Hypovitaminosis D: Code(s): E55.9 - Vitamin D deficiency, unspecified Category: Medical Plan The patient's blood pressure is well-controlled, and no changes are needed at this time. Cholesterol levels, although slightly elevated, do not require immediate intervention but will be monitored. Vitamin D supplementation should continue as levels are nearing normal. A referral to an ENT specialist has been made for a throat evaluation, with an appointment expected in February. The patient is advised to maintain her current diet and avoid fatty foods to manage her weight. Patient was informed and verbally consented to the use of an ambient scribe for clinic note documentation during this visit. Orders: Orders Thyroid Stimulating Hormone 4 Months E03.9 - Hypothyroidism, unspecified
--- OUTSIDE RECORDS SUMMARY | 2024-11-11 09:38 | XMS_ITS | Encounter Summary ---
Author Organization [employer] [facility] Address [address] [place] [address] Care Team Providers Care Folder Tier Name Role Phone Unavailable Primary Care Provider Unavailabl e Encounter Details Date Type Department Care Team (Latest Contact Info) Description 10/22/2018 Abstract [facility] CONVERSIONS Dental, Provider, DDS Social History [...] Description 04/30/2025 1:00 PM EST Office Visit [facility] ADULT DENTAL [address] [place] [address] Sherri, Farheen [address] [place] [address] documented as of this encounter Visit Diagnoses Not on filedocumented in this encounter
== END 2024-11-11 10:10 | disposition home or self-care (01) ==
LOC: HO.HMCH 09:09
PROVIDERS: PCP Internal Medicine; Visit Provider Internal Medicine
DX: E03.9 Hypothyroidism, unspecified (principal); E78.00 Pure hypercholesterolemia, unspecified; F32.0 Major depressive disorder, single episode, mild; R49.0 Dysphonia; K59.04 Chronic idiopathic constipation; E55.9 Vitamin D deficiency, unspecified

== ENCOUNTER → 2024-11-11 09:09 | Outpatient (BNVA) | payer OTHER, SELFPAY | PROVIDERS: PCP Internal Medicine; Visit Provider Internal Medicine | DX: F32.0 Major depressive disorder, single episode, mild (principal); E03.9 Hypothyroidism, unspecified; E78.00 Pure hypercholesterolemia, unspecified; R49.0 Dysphonia; K59.04 Chronic idiopathic constipation; E55.9 Vitamin D deficiency, unspecified | CPT/HCPCS: 96127; 99212 ==

== ENCOUNTER 2025-03-12 09:18 | Outpatient (REF) | payer OTHER, SELFPAY ==
--- OUTSIDE RECORDS SUMMARY | 2025-03-12 10:25 | XMS_ITS | Encounter Summary ---
Author Organization [employer] [facility] Address [address] [address] [place] [address] Care Team Providers Care Supervisor Cell Operation Name Role Phone Unavailable Primary Care Provider Unavailabl e Encounter Details Date Type Department Care Team (Latest Contact Info) Description 10/22/2018 Abstract [facility] CONVERSIONS Dental, Provider, DDS Social History Tobacco [...] Team (Late st Contact Info) Description 04/30/2025 12:45 PM EST Office Visit [facility] ADULT DENTAL [address] [place] [address] Sherri, Farheen [address] [place] [address] documented as of this encounter Visit Diagnoses Not on filedocumented in this encounter
--- OUTSIDE RECORDS SUMMARY | 2025-03-12 10:25 | XMS_ITS | Clinical Summary ---
Author Organization [employer] Address [address] [place] [address] [address] [place] [address] Care Team Providers Care Avid Editor Name Role Phone Unavailable Primary Care Provider Unavailabl e Allergies No known active allergies Medications atorvastatin (Lipitor) 10 MG tablet Take 10 mg by mouth in the morning. 3 Active docusate sodium (Colace) 100 MG capsule TAKE 2 CAPSULES BY MOUTH EVERY NIGHT AT BEDTIME 3 Active Proctofoam HC 1-1 % foam APLIQUE AL MXAX AFECTADA RECTALLY DOS VECES AL D A CUANDO SEA NECESARIO FOR HEMORRHOIDS 3 Active levothyroxine (Synthroid, Levoxyl) 25 MCG tablet TOME MICHOACANO TABLETA TODOS LOS D EN LA [place] JIMBO 3 Active Melatonin Maximum Strength 5 MG tablet TOME MICHOACANO TABLETA TODOS LOS D AL ACOSTARSE 3 Active sertraline (Zoloft) 50 MG tablet TOME MICHOACANO TABLETA TODOS LOS D EN LA [place] JIMBO 3 Active D3-1000 25 MCG (1000 UT) capsule Take 10 mcg by mouth Once per day. 4 Active Active Problems Problem Noted Date Diagnosed Date Dental caries 06/03/2024 Uterine polyp 03/21/2024 Normal oral exam 09/21/2023 Dental root caries 03/08/2023 Partial edentulism 12/09/2022 Generalized gingival recession 12/09/2022 Dental plaque 12/09/2022 Social History Tobacco Use Types Packs/Day Years [...] Sign Reading Time Taken Comments Blood Pressure 126/78 10/15/2024 1:07 PM EDT Pulse 88 06/25/2024 2:40 PM EDT Temperature - - Respiratory Rate - - Oxygen Saturation - - Inhaled Oxygen Concentration - - Weight - - Height - - Body Mass Index - - Plan of Treatment Upcoming Encounters Date Type Department Care Team (Late st Contact Info) Description 04/30/2025 12:45 PM EST Office Visit [facility] ADULT DENTAL [address] [place] [address] Sherri, Farheen [address] [place] [address] Health Maintenance Due Date Last Done Comments CT Colonography 1960 Colonoscopy 1960 Colorectal Cancer Screening 1960 Depression Screening 1960 FIT DNA/Cologuard 1960 FIT 1960 FOBT 1960 HIV Screening 1960 SDOH Screening 1960 Sigmoidoscopy 1960 Disability Screening 1960 Alcohol/Substance Use Screening 1972 Hepatitis C Screening 1978 Pap Smear 1981 Cervical Cancer Screening 1990 HPV/Cotest 1990 Mammogram 2000 Pneumococcal Vaccine: 50+ Years (1 of 1 - PCV) 2010 Zoster Vaccines (2 of 2) 01/09/2018 11/14/2017 Dental Oral Exam 10/15/2024 04/16/2024, , 12/18/2018, Additional history exists COVID-19 Vaccine ( season) 2024 08/17/2021, 09/07/2020, 08/03/2020 Influenza Vaccine (#1) 2024 , 02/07/2023, 01/06/2022, Additional history exists Dental X-Ray: Bitewings 04/17/2025 04/16/19, 11/15/2022, 04/23/2018, Additional history exists Dental Prophylaxis 04/18/2025 10/15/2024, 0 04/16/2024, 12/09/2022, Additional history exists Tobacco Screening 10/15/2025 10/15/2024 Dental X-Ray: Full Mouth 11/16/2025 11/15/2022, 05/2016 [...] patient's age to complete this topic Meningococcal B Vaccine Aged Out No l onger eligible based on patient's age to complete [...] Procedure Name Priority Date/Time Associated Diagnosis Comments PROPHYLAXIS - ADULT Routine 10/15/2024 1 :00 PM EDT Dental plaque BITEWINGS - 4 RADIOGRAPHIC IMAGES Routine 04/16/2024 8:00 AM EST Dental plaque Generalized gingival recession Missing teeth, acquired PERIODIC ORAL EVALUATION - ESTABLISHED PATIENT Routine 04/16/2024 8:00 AM EST INTRAORAL - COMPLETE SERIES OF RADIOGRAPHIC IMAGES Routine 11/15/2022 2:00 PM EDT from Last 3 Months or Most Recently Relevant to Health Maintenance Insurance [facility] MEDICAID STAND ADULT
[2025-03-12 12:05] LABS: Thyroid Stimulating Hormone 2.51 uIU/mL (0.32-4.0)
== END 2025-03-12 09:19 | disposition home or self-care (01) ==
LOC: HO.LAB 09:18
PROVIDERS: PCP Internal Medicine; Visit Provider Internal Medicine
DX: E03.9 Hypothyroidism, unspecified (principal)
CPT/HCPCS: 36415; 84443

== ENCOUNTER 2025-03-17 13:57 | Outpatient (AMB) | payer OTHER, SELFPAY ==
[2025-03-17 14:23] VITALS: BP 104/60; PULSE 55; RESP 18; O2SAT 99; BMI 30.2
--- NOTE | 2025-03-17 14:23 | A.OFFPC_ITS ---
Vital Signs 03/17/25 14:23 Height 5 ft 5 in Weight 181 lb 4 oz BMI 30.2 BP 104/60 Blood Pressure Location Lt brachial Position Sitting Respiration 18 Pulse 55 Pulse Source Pulse Oximeter Temp Source Temporal Artery Scan Pulse Oximetry (%) 99 Oxygen Delivery Method Room Air Intake Visit Reasons: bp Dictaphone Mechanic Required: No Accompanied by: Self / Same As Patient Allergies No Known Allergies (No Known Allergies*) Allergy (Verified 03/17/25 14:48) Medication List - Last Reconciled 03/17/25 by Michelle Wells MD atorvastatin 10 mg PO DAILY cholecalciferol (vitamin D3) 25 mcg PO DAILY 90 days docusate sodium (Colace) 200 mg (2 x 100 mg) PO BEDTIME levothyroxine 25 mcg PO QAM sertraline 50 mg PO DAILY 90 days Tobacco use date assessed: 03/17/25 Fall risk assessment: No Falls in past year Last assessed Fall Risk: 03/17/25 Dental Screening Dental Screen Date: 03/17/25 Did you have a dental visit in the last 12 months?: Yes Did you have a dental problem in the last 6 months where you did not have access to dental care?: No Was dental information given to patient?: Patient has dentist HPI HPI Comments History of Present Illness Details This is a 64-year-old female with mild major depression, hypothyroidism, pure hypercholesterolemia, chronic idiopathic constipation and low vitamin-D that comes today for follow-up on her conditions. Depression stable with SSRIs. Last TSH was normal. Cholesterol well controlled with medications. On vitamin-D supplements for her low vitamin-D. Constipation stable with medications and high-fiber diet was advised. [facility] Medical History Postmenopausal bleeding Rectal bleeding Mild major depression Obesity Pure hypercholesterolemia Hypothyroidism Surgical History History of cervical polypectomy Hx of colonoscopy Family History Father Diabetes Asthma Hypertension Mother Diabetes Stroke Son Chronic mental illness Schizophrenia Daughter Hypertension Maternal Grandfather Prostate cancer Family/Other Chronic mental illness Family/Other History of breast cancer Other Mental health problem Social History Household Members Other:: lives alone, has family nearby Housing: Apartment Alcohol intake: never Patient Tobacco Use Status: Never used Tobacco e-Cigarette/Vaping Use: Never Used Second Hand Smoke Exposure: No service: No Current occupational status: disabled Cognitive needs: No Hearing needs: No Vision needs: Yes Questionnaire Thrive Questionnaire Date Thrive assessed: 03/17/25 I am a: Patient What is your living situation today?: I have a steady place to live Within the past 12 months, did the food you bought not last and you didn't have the money to get more?: Never true Within the past 12 months, did you worry whether your food would run out before you got money to buy more?: Never true Do you have trouble paying for medicines?: No Do you have trouble getting transportation to medical appointments?: No Do you have trouble paying your heating and electricity bill?: No Do you have trouble taking care of your child, family member or friend?: No Do you have trouble with day-to-day activities such as bathing, preparing meals, shopping, managing finances, etc.?: No Are you currently unemployed and looking for a job?: No Are you interested in more education?: No Currently or been in a relationship where the following occur: No concerns reported THRIVE Score: 0 ESTRELLA-7 AMB Questionnaire ESTRELLA-7 Date ESTRELLA - 7 assessed: 11/11/24 Source: Developed by Drs. Jose Miller, Shadia Marin, Izaiah Adams and colleagues, with an educational demond from [employer]. Review of Systems Const All systems reviewed & are unremarkable except as noted in HPI and below Card Denies chest pain at rest, Denies chest pain with activity, Denies edema, Denies irregular heart rhythm, Denies claudication, Denies dyspnea, Denies dyspnea on exertion, Denies orthopnea, Denies paroxysmal nocturnal dyspnea and Denies slow heart rate Resp Denies cough, Denies dyspnea and Denies dyspnea on exertion GI Denies abdominal pain, Denies change in bowel habits, Denies excessive flatus, Denies nausea and Denies vomiting Physical exam (Primary Care) Vital Signs: Last Vital Signs Pulse 55 03/17/25 14:23 Resp 18 03/17/25 14:23 BP 104/60 03/17/25 14:23 Pulse Ox 99 03/17/25 14:23 Oxygen Delivery Method Room Air 03/17/25 14:23 BMI result Body Mass Index 30.2 BMI Assessment/Plan discussion: High BMI High, discussed plan: lifestyle, weight reduction, dietary and physical activity Tobacco/Smoking Status: Tobacco use Status Tobacco use date assessed 03/17/25 03/17/25 14:29 Patient Tobacco Use Status Never used Tobacco 03/17/25 14:29 e-Cigarette/Vaping Use Never Used 03/17/25 14:29 Thrive Assessment: Date of Thrive Assessment Date Thrive assessed 03/17/25 03/17/25 14:29 Currently or been in a relationship where the following occur: No concerns reported Resp Effort & Inspection: normal respiratory effort Auscultation: clear to auscultation bilaterally Cardio Jugular venous distension: no JVD Rate: regular rate Rhythm: regular rhythm Heart sounds: S1 normal heart sound present and S2 normal heart sound present Extrem General: Yes full ROM Coding Level of Care Code Add On Preventative Visit Only Diagnoses Mild major depression F32.0 Pure hypercholesterolemia E78.00 Hypothyroidism, unspecified type E03.9 Hypothyroidism type: unspecified Hypovitaminosis D E55.9 Chronic idiopathic constipation K59.04 Time Spent (min) 20 Assessment & Plan Assessment & Plan (1) Mild major depression: Code(s): F32.0 - Major depressive disorder, single episode, mild Category: Medical (2) Pure hypercholesterolemia: Code(s): E78.00 - Pure hypercholesterolemia, unspecified Category: Medical (3) Hypothyroidism: Code(s): E03.9 - Hypothyroidism, unspecified Category: Medical Qualifiers: Hypothyroidism type: unspecified Qualified Code(s): E03.9 - Hypothyroidism, unspecified (4) Hypovitaminosis D: Code(s): E55.9 - Vitamin D deficiency, unspecified Category: Medical (5) Chronic idiopathic constipation: Code(s): K59.04 - Chronic idiopathic constipation Category: Medical Plan Continue same medications. Advised a high-fiber diet.. Orders: Orders MM tomosynthesis screening BI Today Z12.31 - Encounter for screening mammogram for malignant neoplasm of breast Lipid Panel Today E78.5 - Hyperlipidemia, unspecified Comprehensive [place]. Panel Fast Today E78.00 - Pure hypercholesterolemia, unspecified Thyroid Stimulating Hormone 2 Months E03.9 - Hypothyroidism, unspecified Vitamin D 25-OH Total Today E55.9 - Vitamin D deficiency, unspecified
--- OUTSIDE RECORDS SUMMARY | 2025-03-17 17:27 | XMS_ITS | Clinical Summary ---
Author Organization [employer] Address [address] [place] [address] [address] [place] [address] Care Team Providers Care Director Of Reimbursement Name Role Phone Unavailable Primary Care Provider [...] MICHOACANO TABLETA TODOS LOS D EN [place] JIMBO 3 Active D3-1000 25 MCG (1000 [...] Description 04/30/2025 12:45 PM EST Office Visit [facility] [address] [place] [address] Sherri, Far[address] [place] [address] Health Maintenance Due Date Last Done Comments [...] Most Recently Relevant to Health Maintenance Insurance D[facility]AL-[facility] MEDICAID STAND ADULT
--- OUTSIDE RECORDS SUMMARY | 2025-03-17 17:27 | XMS_ITS | Encounter Summary ---
Author Organization [employer] [facility] Address [address] [place] [address] Care Team Providers Care Paraplanner Name Role Phone Unavailable Primary Care Provider Unavailabl e Encounter Details Date Type Department Care Team (Latest Contact Info) Description 10/22/2018 Abstract [facility] CONVERSIONS Dental, Provider, DDS Social History Tobacco [...] Description 04/30/2025 12:45 PM EST Office Visit [facility] [address] [place] [address] Sherri, [address] [place] [address] documented as of this encounter Visit Diagnoses Not on filedocumented in this encounter
== END 2025-03-17 15:00 | disposition home or self-care (01) ==
LOC: HO.HMCH 13:58
PROVIDERS: PCP Internal Medicine; Visit Provider Internal Medicine
DX: F32.0 Major depressive disorder, single episode, mild (principal); E78.00 Pure hypercholesterolemia, unspecified; E03.9 Hypothyroidism, unspecified; E55.9 Vitamin D deficiency, unspecified; K59.04 Chronic idiopathic constipation

== ENCOUNTER → 2025-03-17 13:57 | Outpatient (BNVA) | payer OTHER, SELFPAY | PROVIDERS: PCP Internal Medicine; Visit Provider Internal Medicine | DX: I10 Essential (primary) hypertension (principal); K59.04 Chronic idiopathic constipation; F32.0 Major depressive disorder, single episode, mild; E78.00 Pure hypercholesterolemia, unspecified; E03.9 Hypothyroidism, unspecified; E55.9 Vitamin D deficiency, unspecified; Z79.899 Other long term (current) drug therapy | CPT/HCPCS: 99212 ==